=== PATIENT | female | born 1980 | race Caucasian/White ===

== ENCOUNTER 2021-02-25 16:19 | Observation (INO) | payer BC ==
--- NOTE | 2021-02-25 16:35 | PCM.EKG ---
#1 Interpretation EKG Date: 02/25/21 Time: 16:20 Rhythm: Other (sinus tachy) Rate (Beats/Min): 92 ST-T: Normal
[2021-02-25] MEDS ORDERED: LORazepam 2 MG/ML SDV IVPUSH ONE ×2 (16:39→18:00)
[2021-02-25] MEDS ORDERED: Sodium Chloride 0.9% 1,000 ML IV ONE (16:41)
[2021-02-25] MEDS: Sodium Chloride 0.9% 10 ML Syringe FLUSH PRN (16:50)
[2021-02-25] MEDS: Sodium Chloride 0.9% 2.5 ML Syringe FLUSH PRN (16:51)
[2021-02-25 17:19] LABS: BLOOD UREA NITROGEN,BUN 16 mg/dL (7.0-18.0); CARBON DIOXIDE,CO2 9.3 mmol/L (21.0-32.0); CHLORIDE,CL 97 mmol/L (98-107); GLUCOSE RANDOM 122 mg/dL (74-106); POTASSIUM,K 4.5 mmol/L (3.5-5.1); SODIUM,NA 134 mmol/L (136-145)
[2021-02-25] MEDS ORDERED: chlordiazePOXIDE 10 MG Cap PO ONE (18:11)
--- NOTE | 2021-02-25 18:23 | EDM.PDOC ---
ED HPI GENERAL MEDICAL PROBLEM - General Chief Complaint: Abdominal Pain Stated Complaint: EMS Time Seen by Provider: 02/25/21 16:20 Source of Information: Reports: Patient History Limitations: Reports: No Limitations - History of Present Illness INITIAL COMMENTS - FREE TEXT/NARRATIVE: HISTORY AND PHYSICAL: History of present illness: The patient is a 41-year-old female presents to the emergency room via EMS after vomiting all morning. The patient is an alcoholic and stated that she had been drinking for the last 2 weeks and that her last drink was yesterday evening. Her drink of choice is vodka. She states that currently her nausea is under control after receiving Zofran from EMS. The patient states that she went to rehab 3 years ago and stopped drinking. Then last February she started drinking again after the of her . The patient states that she will drink for weeks and then quit for some days and then return to drinking. She states she is often tremulous for several days after drinking but has never sought care for it. Patient states sometimes she will feel hung over but never has vomiting such as she had. The patient reports she does have support at home of her mom and live in [facility]. The patient states she needs help with the alcohol withdrawal. Patient denies any fever, chills, headache, change in vision, syncope or near syncope. Denies any chest pain, back pain, shortness of breath or cough. Denies any diarrhea, constipation or dysuria. Has not noted any blood in urine or stool. Patient last menstrual cycle ended two days ago. The patient's boyfriend had a vasectomy and she states there is no way she could be . The patient is hemodynamically stable with a mildly elevated blood pressure of 169/77 and heart rate of 107. She is afebrile at 97.9. Review of systems: As per history of present illness and below otherwise all systems reviewed and negative. Past medical history: As per history of present illness and as reviewed below otherwise noncontributory. Surgical history: As per history of present illness and as reviewed below otherwise noncontributory. Social history: See social history for further information Family history: As per history of present illness and as reviewed below otherwise noncontributory. Physical exam: General: Well developed and well nourished. Alert and orientated x 3. Nontoxic in appearance and in mild distress distress. Vital signs are stable and have been reviewed by me. Nursing notes were reviewed. HEENT: Atraumatic, normocephalic, pupils equal and reactive bilaterally, negative for conjunctival pallor or scleral icterus, mucous membranes moist, TMs normal bilaterally, throat clear, neck supple, nontender, trachea midline. No drooling or trismus noted. No meningeal signs. No hot potato voice noted. Lungs: Clear to auscultation bilaterally. No wheezes, rales, or rhonchi. Chest nontender. Normal work of breathing, no accessory muscles used. Heart: S1S2, sinus tach without overt murmur, gallops, or rubs. No JVD. No peripheral edema Abdomen: Soft, nondistended, mildly tender. Normoactive bowel sounds. Negative for masses or costovertebral tenderness. Skin: Intact, warm, dry. No lesions or rashes noted. Hematologic: No petechiae or purpra. Mucosa appropriate color and normal nail bed color and refill. Extremities: Atraumatic, moves all extremities per self but tremulous over entire body. Negative for cords or calf pain. Neuro: Awake, alert, oriented. Cranial nerves II through XII unremarkable. Cerebellum unremarkable. Psychiatric: Mood and affect are appropriate. Normal thought process. Answering questions appropriately. Notes: *This patient was seen and evaluated during the 2019 SARS-CoV-2 novel coronavirus pandemic period. Community viral transmission is ongoing at time of this encounter and the emergency department is operating under pandemic response procedures. After discussion and examination the patient is agreeable to labs, IV fluids, Ativan with possible admission. The patient has an elevated WBC at 16.43. She denies urinary symptoms and denies fever. The patient is still tremulous so I will treat her with Ativan 1 mg IV again. Post Ativan ministration the patient appears to be more relaxed. I have spoken with Dr. Plaza regarding possible admission for the patient and she has agreed to observation with telemetry. Diagnostics: CBC, CMP, lipase, COVID-19, CXR 2V, Urine drugs, ETHOL, Therapeutics: IV fluids, Ativan x2 Impression: Alcohol withdrawal Definitive disposition and diagnosis as appropriate pending reevaluation and review of above. 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 Per pt it passed in 5-6hrs with no complications and no hx of such prior nor since. 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 - Infectious Disease History Infectious Disease History: Reports: Chicken Pox - Past Surgical History Other HEENT Surgeries/Procedures: [place] Teeth Removed ED ROS GENERAL - Review of Systems Review Of Systems: Comprehensive ROS is negative, except as noted in HPI. ED EXAM, GENERAL - Physical Exam Exam: See Below (See dictation) Course - Vital Signs Last Recorded V/S: Last Vital Signs Temp 98.3 F 02/25/21 20:26 Pulse 84 02/25/21 20:26 Resp 17 02/25/21 20:26 BP 152/93 H 02/25/21 20:26 Pulse Ox 98 02/25/21 20:26 - Orders/Labs/Meds Orders: Active Orders 24 hr Category Date Time Status EKG Documentation Completion [RC] STAT Care 02/25/21 16:38 Active Sodium Chloride 0.9% [Saline Flush] Med 02/25/21 16:37 Active 10 ml FLUSH ASDIRECTED PRN Sodium Chloride 0.9% [Saline Flush] Med 02/25/21 16:37 Active 2.5 ml FLUSH ASDIRECTED PRN Saline Lock Insert [OM.PC] Stat Oth 02/25/21 16:38 Ordered Medication Orders Acetaminophen (Acetaminophen 325 Mg Tab) 650 mg PO Q4H PRN PRN Reason: Pain (Mild 1-3)/fever Albuterol/Ipratropium (Albuterol/Ipratropium 3.0-0.5 Mg/3 Ml Neb Soln) 3 ml NEB Q4HRRT PRN PRN Reason: Shortness Of Breath/wheezing Enoxaparin Sodium (Enoxaparin 40 Mg/0.4 Ml Syringe) 40 mg SUBCUT Q24H SISI Last Admin: 02/25/21 21:16 Dose: 40 mg Documented by: ALIN Folic Acid (Folic Acid 1 Mg Tab) 1 mg PO DAILY SISI Lactated Ringer's (Ringers, Lactated) 1,000 mls @ 125 mls/hr IV ASDIRECTED [facility] Last Admin: 02/25/21 21:59 Dose: 125 mls/hr Documented by: ALIN Ceftriaxone Sodium/Dextrose (Rocephin In Dextrose,Iso-Osm 1 Gm/50 Ml) 50 mls @ 200 mls/hr IV Q24H [facility] Last Admin: 02/25/21 21:18 Dose: 200 mls/hr Documented by: ALIN Lorazepam (Lorazepam 2 Mg/Ml Sdv) 0 mg IVPUSH Q4H PRN; Protocol PRN Reason: Withdrawal Symptoms Last Admin: 02/25/21 21:33 Dose: 1 mg Documented by: ALIN Ondansetron HCl (Ondansetron 4 Mg/2 Ml Sdv) 4 mg IVPUSH Q4H PRN PRN Reason: Nausea/Vomiting Sodium Chloride (Sodium Chloride 0.9% 10 Ml Syringe) 10 ml FLUSH ASDIRECTED PRN PRN Reason: Keep Vein Open Last Admin: 02/25/21 16:50 Dose: 10 ml Documented by: [id number] Sodium Chloride (Sodium Chloride 0.9% 2.5 Ml Syringe) 2.5 ml FLUSH ASDIRECTED PRN PRN Reason: Keep Vein Open Last Admin: 02/25/21 16:51 Dose: 2.5 ml Documented by: [id number] Thiamine HCl (Thiamine 100 Mg Tab) 100 mg PO BEDTIME [facility] Last Admin: 02/25/21 21:15 Dose: 100 mg Documented by: ALIN Labs: Laboratory Tests 02/25/21 02/25/21 02/25/21 Range/Units 16:40 16:40 16:40 WBC 16.43 H (4.0-11.0) K/uL RBC 3.84 L (4.30-5.90) M/uL Hgb 12.7 (12.0-16.0) g/dL Hct 37.0 (36.0-46.0) % MCV 96.4 (80.0-98.0) fL MCH 33.1 H (27.0-32.0) pg MCHC 34.3 (31.0-37.0) g/dL RDW Std Deviation 46.5 (28.0-62.0) fl RDW Coeff of Magdiel 13 (11.0-15.0) % Plt Count 248 (150-400) K/uL MPV 9.10 (7.40-12.00) fL Neut % (Auto) 93.5 H (48.0-80.0) % Lymph % (Auto) 4.5 L (16.0-40.0) % [place] % (Auto) 1.9 (0.0-15.0) % Eos % (Auto) 0.0 (0.0-7.0) % Baso % (Auto) 0.1 (0.0-1.5) % Neut # (Auto) 15.4 H (1.4-5.7) K/uL Lymph # (Auto) 0.7 (0.6-2.4) K/uL [place] # (Auto) 0.3 (0.0-0.8) K/uL Eos # (Auto) 0.0 (0.0-0.7) K/uL Baso # (Auto) 0.0 (0.0-0.1) K/uL Nucleated RBC % 0.0 /100WBC Nucleated RBCs # 0 K/uL Sodium 134 L (136-145) mmol/L Potassium 4.5 (3.5-5.1) mmol/L Chloride 97 L (98-107) mmol/L Carbon Dioxide 9.3 L (21.0-32.0) mmol/L BUN 16 (7.0-18.0) mg/dL Creatinine 0.8 (0.6-1.0) mg/dL Est Cr Clr Drug Dosing 76.55 mL/min Estimated GFR (MDRD) > 60.0 ml/min Glucose 122 H (74-106) mg/dL Calcium 8.0 L (8.5-10.1) mg/dL Magnesium (1.8-2.4) mg/dL Total Bilirubin 1.0 (0.2-1.0) mg/dL AST 73 H (15-37) IU/L ALT 74 H (14-63) IU/L Alkaline Phosphatase 107 (46-116) U/L Total Protein 8.0 (6.4-8.2) g/dL Albumin 3.9 (3.4-5.0) g/dL Globulin 4.1 H (2.6-4.0) g/dL Albumin/Globulin Ratio 1.0 (0.9-1.6) Lipase (73-393) U/L HCG, Qual NEGATIVE (NEG) Urine Color Urine Appearance Urine pH (5.0-8.0) Ur Specific [place] (1.001-1.035) Urine Protein (NEGATIVE) mg/dL Urine Glucose (UA) (NEGATIVE) mg/dL Urine Ketones (NEGATIVE) mg/dL Urine Occult Blood (NEGATIVE) Urine Nitrite (NEGATIVE) Urine Bilirubin (NEGATIVE) Urine Urobilinogen (<2.0) EU/dL Ur Leukocyte Esterase (NEGATIVE) Urine RBC (0-2/HPF) Urine WBC (0-5/HPF) Ur Epithelial Cells (NONE-FEW) Urine Bacteria (NEGATIVE) Urine HCG, Qual (NEGATIVE) Urine Opiates Screen (NEGATIVE) Ur Oxycodone Screen (NEGATIVE) Urine Methadone Screen (NEGATIVE) Ur Barbiturates Screen (NEGATIVE) Ur Phencyclidine Scrn (NEGATIVE) Ur Amphetamine Screen (NEGATIVE) U Methamphetamines Scrn (NEGATIVE) U Benzodiazepines Scrn (NEGATIVE) U Cocaine Metab Screen (NEGATIVE) U Marijuana (THC) Screen (NEGATIVE) Ethyl Alcohol < 3.0 mg/dL SARS-CoV-2 RNA (JOSELITO) (NEGATIVE) 02/25/21 02/25/21 02/25/21 Range/Units 16:40 16:40 17:10 WBC (4.0-11.0) K/uL RBC (4.30-5.90) M/uL Hgb (12.0-16.0) g/dL Hct (36.0-46.0) % MCV (80.0-98.0) fL MCH (27.0-32.0) pg MCHC (31.0-37.0) g/dL RDW Std Deviation (28.0-62.0) fl RDW Coeff of Magdiel (11.0-15.0) % Plt Count (150-400) K/uL MPV (7.40-12.00) fL Neut % (Auto) (48.0-80.0) % Lymph % (Auto) (16.0-40.0) % [place] % (Auto) (0.0-15.0) % Eos % (Auto) (0.0-7.0) % Baso % (Auto) (0.0-1.5) % Neut # (Auto) (1.4-5.7) K/uL Lymph # (Auto) (0.6-2.4) K/uL [place] # (Auto) (0.0-0.8) K/uL Eos # (Auto) (0.0-0.7) K/uL Baso # (Auto) (0.0-0.1) K/uL Nucleated RBC % /100WBC Nucleated RBCs # K/uL Sodium (136-145) mmol/L Potassium (3.5-5.1) mmol/L Chloride (98-107) mmol/L Carbon Dioxide (21.0-32.0) mmol/L BUN (7.0-18.0) mg/dL Creatinine (0.6-1.0) mg/dL Est Cr Clr Drug Dosing mL/min Estimated GFR (MDRD) ml/min Glucose (74-106) mg/dL Calcium (8.5-10.1) mg/dL Magnesium 1.7 L (1.8-2.4) mg/dL Total Bilirubin (0.2-1.0) mg/dL AST (15-37) IU/L ALT (14-63) IU/L Alkaline Phosphatase (46-116) U/L Total Protein (6.4-8.2) g/dL Albumin (3.4-5.0) g/dL Globulin (2.6-4.0) g/dL Albumin/Globulin Ratio (0.9-1.6) Lipase 137 (73-393) U/L HCG, Qual (NEG) Urine Color Urine Appearance Urine pH (5.0-8.0) Ur Specific [place] (1.001-1.035) Urine Protein (NEGATIVE) mg/dL Urine Glucose (UA) (NEGATIVE) mg/dL Urine Ketones (NEGATIVE) mg/dL Urine Occult Blood (NEGATIVE) Urine Nitrite (NEGATIVE) Urine Bilirubin (NEGATIVE) Urine Urobilinogen (<2.0) EU/dL Ur Leukocyte Esterase (NEGATIVE) Urine RBC (0-2/HPF) Urine WBC (0-5/HPF) Ur Epithelial Cells (NONE-FEW) Urine Bacteria (NEGATIVE) Urine HCG, Qual (NEGATIVE) Urine Opiates Screen (NEGATIVE) Ur Oxycodone Screen (NEGATIVE) Urine Methadone Screen (NEGATIVE) Ur Barbiturates Screen (NEGATIVE) Ur Phencyclidine Scrn (NEGATIVE) Ur Amphetamine Screen (NEGATIVE) U Methamphetamines Scrn (NEGATIVE) U Benzodiazepines Scrn (NEGATIVE) U Cocaine Metab Screen (NEGATIVE) U Marijuana (THC) Screen (NEGATIVE) Ethyl Alcohol mg/dL SARS-CoV-2 RNA (JOSELITO) NEGATIVE (NEGATIVE) 02/25/21 02/25/21 02/25/21 Range/Units 17:30 17:30 17:30 WBC (4.0-11.0) K/uL RBC (4.30-5.90) M/uL Hgb (12.0-16.0) g/dL Hct (36.0-46.0) % MCV (80.0-98.0) fL MCH (27.0-32.0) pg MCHC (31.0-37.0) g/dL RDW Std Deviation (28.0-62.0) fl RDW Coeff of Magdiel (11.0-15.0) % Plt Count (150-400) K/uL MPV (7.40-12.00) fL Neut % (Auto) (48.0-80.0) % Lymph % (Auto) (16.0-40.0) % [place] % (Auto) (0.0-15.0) % Eos % (Auto) (0.0-7.0) % Baso % (Auto) (0.0-1.5) % Neut # (Auto) (1.4-5.7) K/uL Lymph # (Auto) (0.6-2.4) K/uL [place] # (Auto) (0.0-0.8) K/uL Eos # (Auto) (0.0-0.7) K/uL Baso # (Auto) (0.0-0.1) K/uL Nucleated RBC % /100WBC Nucleated RBCs # K/uL Sodium (136-145) mmol/L Potassium (3.5-5.1) mmol/L Chloride (98-107) mmol/L Carbon Dioxide (21.0-32.0) mmol/L BUN (7.0-18.0) mg/dL Creatinine (0.6-1.0) mg/dL Est Cr Clr Drug Dosing mL/min Estimated GFR (MDRD) ml/min Glucose (74-106) mg/dL Calcium (8.5-10.1) mg/dL Magnesium (1.8-2.4) mg/dL Total Bilirubin (0.2-1.0) mg/dL AST (15-37) IU/L ALT (14-63) IU/L Alkaline Phosphatase (46-116) U/L Total Protein (6.4-8.2) g/dL Albumin (3.4-5.0) g/dL Globulin (2.6-4.0) g/dL Albumin/Globulin Ratio (0.9-1.6) Lipase (73-393) U/L HCG, Qual (NEG) Urine Color YELLOW Urine Appearance HAZY Urine pH 6.0 (5.0-8.0) Ur Specific [place] >= 1.030 (1.001-1.035) Urine Protein 30 H (NEGATIVE) mg/dL Urine Glucose (UA) NEGATIVE (NEGATIVE) mg/dL Urine Ketones >=80 (NEGATIVE) mg/dL Urine Occult Blood LARGE H (NEGATIVE) Urine Nitrite NEGATIVE (NEGATIVE) Urine Bilirubin NEGATIVE (NEGATIVE) Urine Urobilinogen 0.2 (<2.0) EU/dL Ur Leukocyte Esterase TRACE H (NEGATIVE) Urine RBC 0-3 (0-2/HPF) Urine WBC 0-1 (0-5/HPF) Ur Epithelial Cells FEW (NONE-FEW) Urine Bacteria FEW (NEGATIVE) Urine HCG, Qual NEGATIVE (NEGATIVE) Urine Opiates Screen NEGATIVE (NEGATIVE) Ur Oxycodone Screen NEGATIVE (NEGATIVE) Urine Methadone Screen NEGATIVE (NEGATIVE) Ur Barbiturates Screen NEGATIVE (NEGATIVE) Ur Phencyclidine Scrn NEGATIVE (NEGATIVE) Ur Amphetamine Screen NEGATIVE (NEGATIVE) U Methamphetamines Scrn NEGATIVE (NEGATIVE) U Benzodiazepines Scrn NEGATIVE (NEGATIVE) U Cocaine Metab Screen NEGATIVE (NEGATIVE) U Marijuana (THC) Screen NEGATIVE (NEGATIVE) Ethyl Alcohol mg/dL SARS-CoV-2 RNA (JOSELITO) (NEGATIVE) Meds: Medications Generic Name Dose Route Start Last Admin Trade Name Freq PRN Reason Stop Dose Admin Acetaminophen 650 mg 02/25/21 19:56 Acetaminophen 325 Mg Tab PO Q4H PRN Pain (Mild 1-3)/fever Albuterol/Ipratropium 3 ml 02/25/21 19:56 Albuterol/Ipratropium 3.0-0.5 Mg/3 Ml Neb Soln NEB Q4HRRT PRN Shortness Of Breath/wheezing Enoxaparin Sodium 40 mg 02/25/21 20:00 02/25/21 21:16 Enoxaparin 40 Mg/0.4 Ml Syringe SUBCUT 40 mg Q24H SISI Administration Folic Acid 1 mg 02/26/21 09:00 Folic Acid 1 Mg Tab PO DAILY SISI Lactated Ringer's 1,000 mls @ 125 mls/hr 02/25/21 20:45 02/25/21 21:59 Ringers, Lactated IV 125 mls/hr ASDIRECTED SISI Administration Ceftriaxone Sodium/Dextrose 50 mls @ 200 mls/hr 02/25/21 21:00 02/25/21 21:18 Rocephin In Dextrose,Iso-Osm 1 Gm/50 Ml IV 200 mls/hr Q24H SISI Administration Lorazepam 0 mg 02/25/21 20:03 02/25/21 21:33 Lorazepam 2 Mg/Ml Sdv IVPUSH 1 mg Q4H PRN Administration Withdrawal Symptoms Protocol Ondansetron HCl 4 mg 02/25/21 19:56 Ondansetron 4 Mg/2 Ml Sdv IVPUSH Q4H PRN Nausea/Vomiting Sodium Chloride 10 ml 02/25/21 16:37 02/25/21 16:50 Sodium Chloride 0.9% 10 Ml Syringe FLUSH 10 ml ASDIRECTED PRN Administration Keep Vein Open Sodium Chloride 2.5 ml 02/25/21 16:37 02/25/21 16:51 Sodium Chloride 0.9% 2.5 Ml Syringe FLUSH 2.5 ml ASDIRECTED PRN Administration Keep Vein Open Thiamine HCl 100 mg 02/25/21 21:00 02/25/21 21:15 Thiamine 100 Mg Tab PO 100 mg BEDTIME SISI Administration Discontinued Medications Generic Name Dose Route Start Last Admin Trade Name Freq PRN Reason Stop Dose Admin Chlordiazepoxide HCl 10 mg 02/25/21 18:11 02/25/21 19:18 Chlordiazepoxide 10 Mg Cap PO 02/25/21 18:12 10 mg ONETIME ONE Administration Sodium Chloride 1,000 mls @ 999 mls/hr 02/25/21 16:41 02/25/21 16:51 Normal Saline IV 02/25/21 17:41 999 mls/hr .BOLUS ONE Administration Lorazepam 1 mg 02/25/21 16:39 02/25/21 16:51 Lorazepam 2 Mg/Ml Sdv IVPUSH 02/25/21 16:40 1 mg ONETIME ONE Administration Lorazepam 1 mg 02/25/21 18:00 02/25/21 18:13 Lorazepam 2 Mg/Ml Sdv IVPUSH 02/25/21 18:01 1 mg ONETIME ONE Administration Magnesium Oxide 800 mg 02/25/21 20:37 02/25/21 21:15 Magnesium Oxide 400 Mg Tab PO 02/25/21 20:38 800 mg ONETIME ONE Administration Departure - Departure Time of Disposition: 18:13 Disposition: Admitted As Inpatient 66 Condition: Good Clinical Impression: Alcohol abuse, Withdrawal complaint - Discharge Information *PRESCRIPTION DRUG MONITORING PROGRAM REVIEWED*: No *COPY OF PRESCRIPTION DRUG MONITORING REPORT IN PATIENT ANDRESSA: No Sepsis Event Note (ED) - Evaluation Sepsis Screening Result: No Definite Risk - Focused Exam Vital Signs: Vital Signs Temp Pulse Resp BP Pulse Ox 02/25/21 17:25 96 19 148/92 H 97 02/25/21 16:22 97.9 F 92 18 169/77 H 98 - My Orders Last 24 Hours: My Active Orders 02/25/21 16:37 Sodium Chloride 0.9% [Saline Flush] 10 ml FLUSH ASDIRECTED PRN Sodium Chloride 0.9% [Saline Flush] 2.5 ml FLUSH ASDIRECTED PRN 02/25/21 16:38 EKG Documentation Completion [RC] STAT Saline Lock Insert [OM.PC] Stat - Assessment/Plan Last 24 Hours: My Active Orders 02/25/21 16:37 Sodium Chloride 0.9% [Saline Flush] 10 ml FLUSH ASDIRECTED PRN Sodium Chloride 0.9% [Saline Flush] 2.5 ml FLUSH ASDIRECTED PRN 02/25/21 16:38 EKG Documentation Completion [RC] STAT Saline Lock Insert [OM.PC] Stat
--- NOTE | 2021-02-25 19:10 | CR ---
Indication: Increased white blood cell count possible aspiration Comparison: None available. Technique: PA and Lateral views chest Findings: There is no focal consolidation, effusion, or pneumothorax. The cardiomediastinal silhouette is within normal limits. The bony thorax is grossly intact. Impression: No acute cardiopulmonary abnormality. No evidence of dense consolidation. Dictated by Frandy Markham MD @ 02/25/2021 7:09:[address] Frandy Markham @ Feb 25 2021 7:09PM
[2021-02-25] MEDS ORDERED: Ondansetron 4 MG/2 ML SDV IVPUSH PRN (19:56)
[2021-02-25] MEDS ORDERED: Albuterol/Ipratropium 3.0-0.5 MG/3 ML Neb Soln NEB PRN (19:56)
[2021-02-25] MEDS ORDERED: Magnesium Oxide 400 MG Tab PO ONE (20:37)
--- NOTE | 2021-02-25 20:38 | PCM.HP.2 ---
H&P History of Present Illness - General Date of Service: 02/25/21 Admit Problem/Dx: Admission Diagnosis/Problem Admission Diagnosis/Problem Withdrawal complaint Source of Information: Patient History Limitations: Reports: No Limitations - History of Present Illness Initial Comments - Free Text/Narative: Patient is a 41-year-old female with past medical history of alcohol abuse, anxiety, depression who comes into the ER by EMS with complaints of feeling unwell and having intractable nausea all morning. Patient states that she has been drinking for last 2 weeks and her last drink was yesterday evening when she had some vodka. She states that she has been struggling with alcohol abuse for a while. She had been sober for few years after she went to rehab 3 years ago but then last year she went through a lot of stress due to losing close family members and hence started drinking again. Patient states that she had stopped drinking for last 3 days but was feeling very miserable so yesterday she had a couple of drinks. Today she started having intractable nausea and vomiting and started feeling very sick so she came to the hospital. Patient feels like she is going through withdrawal symptoms and needs help to go through it.. Patient denies any fever, chills, headache, change in vision, syncope or near syncope. Denies any chest pain, back pain, shortness of breath or cough. Denies any diarrhea, constipation or dysuria. Has not noted any blood in urine or stool. Patient last menstrual cycle ended two days ago. The patient's boyfriend had a vasectomy and she states there is no way she could be . The patient is hemodynamically stable with a mildly elevated blood pressure of 169/77 and heart rate of 107. She is afebrile at 97.9, patient CIWA score was 21 in the ER so she received 2 doses of Ativan and upon my request she also receiv ed 10 mg of Librium. Patient was admitted for further management. - Related Data Allergies/Adverse Reactions: Allergies Allergy/AdvReac Type Severity Reaction Status Date / Time No Known Allergies Allergy Verified 02/25/21 20:29 Home Medications: Home Meds Escitalopram [Lexapro] 20 mg PO BEDTIME 02/25/21 [History] Past Medical History - Past Health History Medical/Surgical History: Denies Medical/Surgical History Other Genitourinary History: Passed a kidney stone during this current . Per pt it passed in 5-6hrs with no complications and no hx of such prior nor since. ILLUSIONIST History: Reports: Other OB/BYN History: Currently 39-2 weeks gestation. - Infectious Disease History Infectious Disease History: Reports: Chicken Pox - Past Surgical History Other HEENT Surgeries/Procedures: [place] Teeth Removed H&P Review of Systems - Review of Systems: Review Of Systems: See Below General: Reports: Malaise, Weakness, Fatigue. Denies: Fever, Chills Pulmonary: Denies: Shortness of Breath, Wheezing Cardiovascular: Denies: Chest Pain, Palpitations Gastrointestinal: Reports: Anorexia, Decreased Appetite, Nausea, Vomiting. Denies: Abdominal Pain, Black Stool, Bloody Stool, Constipation, Diarrhea, Hematemesis, Hematochezia Genitourinary: Denies: Dysuria, Frequency Musculoskeletal: Denies: Neck Pain, Shoulder Pain Skin: Denies: Cyanosis, Jaundice, Mottled Psychiatric: Reports: Anxiety. Denies: Confusion, Depression, Mood Lability, Suicidal Ideation, Homicidal Ideation Exam - Exam Exam: See Below - Vital Signs Vital Signs: Last Vital Signs Temp 36.8 C 02/25/21 20:26 Pulse 84 02/25/21 20:26 Resp 17 02/25/21 20:26 BP 152/93 H 02/25/21 20:26 Pulse Ox 98 02/25/21 20:26 Weight: 56.699 kg - Exam Quality Assessment: Supplemental Oxygen General: Alert, Cooperative, Moderate Distress Neck: Supple, Trachea Midline Lungs: Clear to Auscultation, Normal Respiratory Effort Cardiovascular: Regular Rate, Regular Rhythm GI/Abdominal Exam: Normal Bowel Sounds, Soft, Non-Tender Skin: Warm, Dry Neurological: Cranial Nerves Intact, Strength Equal Bilateral, Normal Tone Neuro Extensive - Mental Status: Alert, Oriented x3 Neuro Extensive - Motor, Sensory, Reflexes: CN II-XII Intact, Tremor. No: Tongue Deviation (R), Facial Palsy (R), Motor/Sensory Deficits Psychiatric: Alert, Anxious, Withdrawal Symptoms - Patient Data Lab Results Last 24 hrs: Laboratory Results - last 24 hr 02/25/21 02/25/21 02/25/21 Range/Units 16:40 16:40 16:40 WBC 16.43 H (4.0-11.0) K/uL RBC 3.84 L (4.30-5.90) M/uL Hgb 12.7 (12.0-16.0) g/dL Hct 37.0 (36.0-46.0) % MCV 96.4 (80.0-98.0) fL MCH 33.1 H (27.0-32.0) pg MCHC 34.3 (31.0-37.0) g/dL RDW Std Deviation 46.5 (28.0-62.0) fl RDW Coeff of Magdiel 13 (11.0-15.0) % Plt Count 248 (150-400) K/uL MPV 9.10 (7.40-12.00) fL Neut % (Auto) 93.5 H (48.0-80.0) % Lymph % (Auto) 4.5 L (16.0-40.0) % Linn % (Auto) 1.9 (0.0-15.0) % Eos % (Auto) 0.0 (0.0-7.0) % Baso % (Auto) 0.1 (0.0-1.5) % Neut # (Auto) 15.4 H (1.4-5.7) K/uL Lymph # (Auto) 0.7 (0.6-2.4) K/uL Linn # (Auto) 0.3 (0.0-0.8) K/uL Eos # (Auto) 0.0 (0.0-0.7) K/uL Baso # (Auto) 0.0 (0.0-0.1) K/uL Nucleated RBC % 0.0 /100WBC Nucleated RBCs # 0 K/uL Sodium 134 L (136-145) mmol/L Potassium 4.5 (3.5-5.1) mmol/L Chloride 97 L (98-107) mmol/L Carbon Dioxide 9.3 L (21.0-32.0) mmol/L BUN 16 (7.0-18.0) mg/dL Creatinine 0.8 (0.6-1.0) mg/dL Est Cr Clr Drug Dosing 76.55 mL/min Estimated GFR (MDRD) > 60.0 ml/min Glucose 122 H (74-106) mg/dL Calcium 8.0 L (8.5-10.1) mg/dL Magnesium (1.8-2.4) mg/dL Total Bilirubin 1.0 (0.2-1.0) mg/dL AST 73 H (15-37) IU/L ALT 74 H (14-63) IU/L Alkaline Phosphatase 107 (46-116) U/L Total Protein 8.0 (6.4-8.2) g/dL Albumin 3.9 (3.4-5.0) g/dL Globulin 4.1 H (2.6-4.0) g/dL Albumin/Globulin Ratio 1.0 (0.9-1.6) Lipase (73-393) U/L HCG, Qual NEGATIVE (NEG) Urine Color Urine Appearance Urine pH (5.0-8.0) Ur Specific Palmer (1.001-1.035) Urine Protein (NEGATIVE) mg/dL Urine Glucose (UA) (NEGATIVE) mg/dL Urine Ketones (NEGATIVE) mg/dL Urine Occult Blood (NEGATIVE) Urine Nitrite (NEGATIVE) Urine Bilirubin (NEGATIVE) Urine Urobilinogen (<2.0) EU/dL Ur Leukocyte Esterase (NEGATIVE) Urine RBC (0-2/HPF) Urine WBC (0-5/HPF) Ur Epithelial Cells (NONE-FEW) Urine Bacteria (NEGATIVE) Urine HCG, Qual (NEGATIVE) Urine Opiates Screen (NEGATIVE) Ur Oxycodone Screen (NEGATIVE) Urine Methadone Screen (NEGATIVE) Ur Barbiturates Screen (NEGATIVE) Ur Phencyclidine Scrn (NEGATIVE) Ur Amphetamine Screen (NEGATIVE) U Methamphetamines Scrn (NEGATIVE) U Benzodiazepines Scrn (NEGATIVE) U Cocaine Metab Screen (NEGATIVE) U Marijuana (THC) Screen (NEGATIVE) Ethyl Alcohol < 3.0 mg/dL SARS-CoV-2 RNA (JOSELITO) (NEGATIVE) 02/25/21 02/25/21 02/25/21 Range/Units 16:40 16:40 17:10 WBC (4.0-11.0) K/uL RBC (4.30-5.90) M/uL Hgb (12.0-16.0) g/dL Hct (36.0-46.0) % MCV (80.0-98.0) fL MCH (27.0-32.0) pg MCHC (31.0-37.0) g/dL RDW Std Deviation (28.0-62.0) fl RDW Coeff of Magdiel (11.0-15.0) % Plt Count (150-400) K/uL MPV (7.40-12.00) fL Neut % (Auto) (48.0-80.0) % Lymph % (Auto) (16.0-40.0) % Linn % (Auto) (0.0-15.0) % Eos % (Auto) (0.0-7.0) % Baso % (Auto) (0.0-1.5) % Neut # (Auto) (1.4-5.7) K/uL Lymph # (Auto) (0.6-2.4) K/uL Linn # (Auto) (0.0-0.8) K/uL Eos # (Auto) (0.0-0.7) K/uL Baso # (Auto) (0.0-0.1) K/uL Nucleated RBC % /100WBC Nucleated RBCs # K/uL Sodium (136-145) mmol/L Potassium (3.5-5.1) mmol/L Chloride (98-107) mmol/L Carbon Dioxide (21.0-32.0) mmol/L BUN (7.0-18.0) mg/dL Creatinine (0.6-1.0) mg/dL Est Cr Clr Drug Dosing mL/min Estimated GFR (MDRD) ml/min Glucose (74-106) mg/dL Calcium (8.5-10.1) mg/dL Magnesium 1.7 L (1.8-2.4) mg/dL Total Bilirubin (0.2-1.0) mg/dL AST (15-37) IU/L ALT (14-63) IU/L Alkaline Phosphatase (46-116) U/L Total Protein (6.4-8.2) g/dL Albumin (3.4-5.0) g/dL Globulin (2.6-4.0) g/dL Albumin/Globulin Ratio (0.9-1.6) Lipase 137 (73-393) U/L HCG, Qual (NEG) Urine Color Urine Appearance Urine pH (5.0-8.0) Ur Specific Palmer (1.001-1.035) Urine Protein (NEGATIVE) mg/dL Urine Glucose (UA) (NEGATIVE) mg/dL Urine Ketones (NEGATIVE) mg/dL Urine Occult Blood (NEGATIVE) Urine Nitrite (NEGATIVE) Urine Bilirubin (NEGATIVE) Urine Urobilinogen (<2.0) EU/dL Ur Leukocyte Esterase (NEGATIVE) Urine RBC (0-2/HPF) Urine WBC (0-5/HPF) Ur Epithelial Cells (NONE-FEW) Urine Bacteria (NEGATIVE) Urine HCG, Qual (NEGATIVE) Urine Opiates Screen (NEGATIVE) Ur Oxycodone Screen (NEGATIVE) Urine Methadone Screen (NEGATIVE) Ur Barbiturates Screen (NEGATIVE) Ur Phencyclidine Scrn (NEGATIVE) Ur Amphetamine Screen (NEGATIVE) U Methamphetamines Scrn (NEGATIVE) U Benzodiazepines Scrn (NEGATIVE) U Cocaine Metab Screen (NEGATIVE) U Marijuana (THC) Screen (NEGATIVE) Ethyl Alcohol mg/dL SARS-CoV-2 RNA (JOSELITO) NEGATIVE (NEGATIVE) 02/25/21 02/25/21 02/25/21 Range/Units 17:30 17:30 17:30 WBC (4.0-11.0) K/uL RBC (4.30-5.90) M/uL Hgb (12.0-16.0) g/dL Hct (36.0-46.0) % MCV (80.0-98.0) fL MCH (27.0-32.0) pg MCHC (31.0-37.0) g/dL RDW Std Deviation (28.0-62.0) fl RDW Coeff of Magdiel (11.0-15.0) % Plt Count (150-400) K/uL MPV (7.40-12.00) fL Neut % (Auto) (48.0-80.0) % Lymph % (Auto) (16.0-40.0) % Linn % (Auto) (0.0-15.0) % Eos % (Auto) (0.0-7.0) % Baso % (Auto) (0.0-1.5) % Neut # (Auto) (1.4-5.7) K/uL Lymph # (Auto) (0.6-2.4) K/uL Linn # (Auto) (0.0-0.8) K/uL Eos # (Auto) (0.0-0.7) K/uL Baso # (Auto) (0.0-0.1) K/uL Nucleated RBC % /100WBC Nucleated RBCs # K/uL Sodium (136-145) mmol/L Potassium (3.5-5.1) mmol/L Chloride (98-107) mmol/L Carbon Dioxide (21.0-32.0) mmol/L BUN (7.0-18.0) mg/dL Creatinine (0.6-1.0) mg/dL Est Cr Clr Drug Dosing mL/min Estimated GFR (MDRD) ml/min Glucose (74-106) mg/dL Calcium (8.5-10.1) mg/dL Magnesium (1.8-2.4) mg/dL Total Bilirubin (0.2-1.0) mg/dL AST (15-37) IU/L ALT (14-63) IU/L Alkaline Phosphatase (46-116) U/L Total Protein (6.4-8.2) g/dL Albumin (3.4-5.0) g/dL Globulin (2.6-4.0) g/dL Albumin/Globulin Ratio (0.9-1.6) Lipase (73-393) U/L HCG, Qual (NEG) Urine Color YELLOW Urine Appearance HAZY Urine pH 6.0 (5.0-8.0) Ur Specific Palmer >= 1.030 (1.001-1.035) Urine Protein 30 H (NEGATIVE) mg/dL Urine Glucose (UA) NEGATIVE (NEGATIVE) mg/dL Urine Ketones >=80 (NEGATIVE) mg/dL Urine Occult Blood LARGE H (NEGATIVE) Urine Nitrite NEGATIVE (NEGATIVE) Urine Bilirubin NEGATIVE (NEGATIVE) Urine Urobilinogen 0.2 (<2.0) EU/dL Ur Leukocyte Esterase TRACE H (NEGATIVE) Urine RBC 0-3 (0-2/HPF) Urine WBC 0-1 (0-5/HPF) Ur Epithelial Cells FEW (NONE-FEW) Urine Bacteria FEW (NEGATIVE) Urine HCG, Qual NEGATIVE (NEGATIVE) Urine Opiates Screen NEGATIVE (NEGATIVE) Ur Oxycodone Screen NEGATIVE (NEGATIVE) Urine Methadone Screen NEGATIVE (NEGATIVE) Ur Barbiturates Screen NEGATIVE (NEGATIVE) Ur Phencyclidine Scrn NEGATIVE (NEGATIVE) Ur Amphetamine Screen NEGATIVE (NEGATIVE) U Methamphetamines Scrn NEGATIVE (NEGATIVE) U Benzodiazepines Scrn NEGATIVE (NEGATIVE) U Cocaine Metab Screen NEGATIVE (NEGATIVE) U Marijuana (THC) Screen NEGATIVE (NEGATIVE) Ethyl Alcohol mg/dL SARS-CoV-2 RNA (JOSELITO) (NEGATIVE) Result Diagrams: 02/25/21 16:40 02/25/21 16:40 Sepsis Event Note - Evaluation Sepsis Screening Result: No Definite Risk - Focused Exam Vital Signs: Vital Signs Temp Pulse Resp BP Pulse Ox 02/25/21 20:26 36.8 C 84 17 152/93 H 98 02/25/21 19:53 84 18 135/84 98 02/25/21 17:25 96 19 148/92 H 97 02/25/21 16:22 36.6 C 92 18 169/77 H 98 - Problem List (1) Anxiety SNOMED Code(s): 01293021 ICD Code: F41.9 - ANXIETY DISORDER, UNSPECIFIED Status: Acute Current Visit: Yes (2) Alcohol abuse SNOMED Code(s): 90178541 ICD Code: F10.10 - ALCOHOL ABUSE, UNCOMPLICATED Status: Acute Current Visit: Yes (3) Withdrawal complaint SNOMED Code(s): 419168045 ICD Code: R68.89 - OTHER GENERAL SYMPTOMS AND SIGNS Status: Acute Current Visit: Yes Problem List Initiated/Reviewed/Updated: Yes Orders Last 24hrs: Active Orders 24 hr Category Date Time Status Admission Status [Patient Status] [ADT] Stat ADT 02/25/21 18:13 Active Ambulate [RC] ASDIRECTED Care 02/25/21 19:56 Active Antiembolic Devices [RC] PER UNIT ROUTINE Care 02/25/21 19:59 Active CIWAA Assessment [RC] Q4H Care 02/25/21 20:03 Active EKG Documentation Completion [RC] STAT Care 02/25/21 16:38 Active Oxygen Therapy [RC] PRN Care 02/25/21 19:57 Active Pulse Oximetry [RC] PRN Care 02/25/21 19:58 Active RT Aerosol Therapy [RC] ASDIRECTED Care 02/25/21 20:00 Active VTE/DVT Education [RC] PER UNIT ROUTINE Care 02/25/21 19:57 Active Vital Signs [RC] Q4H Care 02/25/21 19:57 Active Clear Liquid Diet [DIET] Diet 02/25/21 Dinner Active CULTURE URINE [RM] Routine Lab 02/25/21 20:35 Ordered Acetaminophen [TylenoL] Med 02/25/21 19:56 Active 650 mg PO Q4H PRN Albuterol/Ipratropium [DuoNeb 3.0-0.5 MG/3 ML] Med 02/25/21 19:56 Active 3 ml NEB Q4HRRT PRN Enoxaparin [Lovenox] Med 02/25/21 20:00 Active 40 mg SUBCUT Q24H Folic Acid Med 02/26/21 09:00 Ordered 1 mg PO DAILY LORazepam [Ativan] Med 02/25/21 20:03 Active See Protocol IVPUSH Q4H PRN Lactated Ringers [Ringers, Lactated] 1,000 ml Med 02/25/21 20:45 Ordered IV ASDIRECTED Magnesium Oxide Med 02/25/21 20:37 Once 800 mg PO ONETIME ONE Ondansetron [Zofran] Med 02/25/21 19:56 Active 4 mg IVPUSH Q4H PRN Sodium Chloride 0.9% [Saline Flush] Med 02/25/21 16:37 Active 10 ml FLUSH ASDIRECTED PRN Sodium Chloride 0.9% [Saline Flush] Med 02/25/21 16:37 Active 2.5 ml FLUSH ASDIRECTED PRN Thiamine [Vitamin B-1] Med 02/25/21 21:00 Ordered 100 mg PO BEDTIME cefTRIAXone [Rocephin] Med 02/25/21 20:45 Ordered 1 gm IVPUSH Q24H Saline Lock Insert [OM.PC] Stat Oth 02/25/21 16:38 Ordered Sequential Compression Device [OM.PC] Per Unit Routine Oth 02/25/21 19:58 Ordered Resuscitation Status Routine Resus Stat 02/25/21 19:56 Ordered Medication Orders Acetaminophen (Acetaminophen 325 Mg Tab) 650 mg PO Q4H PRN PRN Reason: Pain (Mild 1-3)/fever Albuterol/Ipratropium (Albuterol/Ipratropium 3.0-0.5 Mg/3 Ml Neb Soln) 3 ml NEB Q4HRRT PRN PRN Reason: Shortness Of Breath/wheezing Ceftriaxone Sodium (Ceftriaxone 1 Gm Vial) 1 gm IVPUSH Q24H [facility] Enoxaparin Sodium (Enoxaparin 40 Mg/0.4 Ml Syringe) 40 mg SUBCUT Q24H [facility] Folic Acid (Folic Acid 1 Mg Tab) 1 mg PO DAILY [facility] Lactated Ringer's (Ringers, Lactated) 1,000 mls @ 125 mls/hr IV ASDIRECTED [facility] Lorazepam (Lorazepam 2 Mg/Ml Sdv) 0 mg IVPUSH Q4H PRN; Protocol PRN Reason: Withdrawal Symptoms Magnesium Oxide (Magnesium Oxide 400 Mg Tab) 800 mg PO ONETIME ONE Stop: 02/25/21 20:38 Ondansetron HCl (Ondansetron 4 Mg/2 Ml Sdv) 4 mg IVPUSH Q4H PRN PRN Reason: Nausea/Vomiting Sodium Chloride (Sodium Chloride 0.9% 10 Ml Syringe) 10 ml FLUSH ASDIRECTED PRN PRN Reason: Keep Vein Open Last Admin: 02/25/21 16:50 Dose: 10 ml Documented by: [id number] Sodium Chloride (Sodium Chloride 0.9% 2.5 Ml Syringe) 2.5 ml FLUSH ASDIRECTED PRN PRN Reason: Keep Vein Open Last Admin: 02/25/21 16:51 Dose: 2.5 ml Documented by: [id number] Thiamine HCl (Thiamine 100 Mg Tab) 100 mg PO BEDTIME [facility] Assessment/Plan Comment:: Patient is a 41-year-old female admitted for alcohol withdrawal Start IV fluids for hydration Start IV Ativan as needed for alcohol withdrawal symptoms based on CIWA score Start long-acting benzodiazepine, taper down upon response Start thiamine and folic acid Follow-up on urine culture, continue Rocephin until cultures are back Fall precautions, seizure precautions SCDs for DVT prophylaxis Monitor and replete electrolytes as needed
[2021-02-25] MEDS ORDERED: cefTRIAXone 1 GM Vial IVPUSH SCH (20:45)
[2021-02-25] MEDS: Thiamine 100 MG Tab PO SCH (21:15)
[2021-02-25] MEDS: Enoxaparin 40 MG/0.4 ML Syringe SUBCUT SCH (21:16)
[2021-02-25] MEDS: LORazepam 2 MG/ML SDV IVPUSH PRN (21:33)
[2021-02-25] MEDS: Lactated Ringers 1,000 ML IV SCH (21:59)
[2021-02-26] MEDS: Lactated Ringers 1,000 ML IV SCH ×2 (06:19→21:23)
[2021-02-26 07:24] LABS: BLOOD UREA NITROGEN,BUN 12 mg/dL (7.0-18.0); CHLORIDE,CL 102 mmol/L (98-107); GLUCOSE RANDOM 78 mg/dL (74-106); POTASSIUM,K 3.8 mmol/L (3.5-5.1); SODIUM,NA 135 mmol/L (136-145)
[2021-02-26] MEDS: Folic Acid 1 MG Tab PO SCH (08:46)
[2021-02-26] MEDS: Potassium Phosphates 20 MMOLE in Sodium Chloride 0.9% 500 ML IV SCH ×2 (08:56→12:16)
--- NOTE | 2021-02-26 09:55 | PCM.PN ---
- General Info Date of Service: 02/26/21 Admission Dx/Problem (Free Text): Admission Diagnosis/Problem Admission Diagnosis/Problem Withdrawal complaint Subjective Update: Patient reports she is feeling improved from last night. Continues to have tremors denies any hallucinations reports that anxiety is well controlled. She reports she is hungry this morning and is wanting to eat. No further nausea vomiting. She is urinating. Not passing gas or have a bowel movement yet. Denies any chest pain shortness of breath. Functional Status: Reports: Pain Controlled, Tolerating Diet, Ambulating, Urinating - Review of Systems General: Reports: Malaise (Generalized). Denies: Fever HEENT: Reports: No Symptoms. Denies: Headaches, Sore Throat, Visual Changes Pulmonary: Reports: No Symptoms. Denies: Shortness of Breath Cardiovascular: Reports: No Symptoms. Denies: Chest Pain Gastrointestinal: Reports: No Symptoms. Denies: Abdominal Pain, Diarrhea, Nausea Genitourinary: Reports: No Symptoms. Denies: Dysuria, Frequency Musculoskeletal: Reports: No Symptoms Skin: Reports: No Symptoms Neurological: Reports: Tremors Psychiatric: Reports: No Symptoms - Patient Data Vitals - Most Recent: Last Vital Signs Temp 98.4 F 02/26/21 07:05 Pulse 85 02/26/21 04:00 Resp 16 02/26/21 07:05 BP 121/72 02/26/21 07:05 Pulse Ox 96 02/26/21 07:05 Weight - Most Recent: 57.062 kg I&O - Last 24 Hours: Intake & Output 02/25/21 02/26/21 02/26/21 22:59 06:59 14:59 Intake Total 1191 Output Total 550 Balance 641 Lab Results Last 24 Hours: Laboratory Results - last 24 hr 02/25/21 02/25/21 02/25/21 Range/Units 16:40 16:40 16:40 WBC 16.43 H (4.0-11.0) K/uL RBC 3.84 L (4.30-5.90) M/uL Hgb 12.7 (12.0-16.0) g/dL Hct 37.0 (36.0-46.0) % MCV 96.4 (80.0-98.0) fL MCH 33.1 H (27.0-32.0) pg MCHC 34.3 (31.0-37.0) g/dL RDW Std Deviation 46.5 (28.0-62.0) fl RDW Coeff of Magdiel 13 (11.0-15.0) % Plt Count 248 (150-400) K/uL MPV 9.10 (7.40-12.00) fL Neut % (Auto) 93.5 H (48.0-80.0) % Lymph % (Auto) 4.5 L (16.0-40.0) % Leon % (Auto) 1.9 (0.0-15.0) % Eos % (Auto) 0.0 (0.0-7.0) % Baso % (Auto) 0.1 (0.0-1.5) % Neut # (Auto) 15.4 H (1.4-5.7) K/uL Lymph # (Auto) 0.7 (0.6-2.4) K/uL Leon # (Auto) 0.3 (0.0-0.8) K/uL Eos # (Auto) 0.0 (0.0-0.7) K/uL Baso # (Auto) 0.0 (0.0-0.1) K/uL Nucleated RBC % 0.0 /100WBC Nucleated RBCs # 0 K/uL Sodium 134 L (136-145) mmol/L Potassium 4.5 (3.5-5.1) mmol/L Chloride 97 L (98-107) mmol/L Carbon Dioxide 9.3 L (21.0-32.0) mmol/L BUN 16 (7.0-18.0) mg/dL Creatinine 0.8 (0.6-1.0) mg/dL Est Cr Clr Drug Dosing 76.55 mL/min Estimated GFR (MDRD) > 60.0 ml/min Glucose 122 H (74-106) mg/dL Calcium 8.0 L (8.5-10.1) mg/dL Phosphorus (2.6-4.7) mg/dL Magnesium (1.8-2.4) mg/dL Total Bilirubin 1.0 (0.2-1.0) mg/dL AST 73 H (15-37) IU/L ALT 74 H (14-63) IU/L Alkaline Phosphatase 107 (46-116) U/L Total Protein 8.0 (6.4-8.2) g/dL Albumin 3.9 (3.4-5.0) g/dL Globulin 4.1 H (2.6-4.0) g/dL Albumin/Globulin Ratio 1.0 (0.9-1.6) Lipase (73-393) U/L HCG, Qual NEGATIVE (NEG) Urine Color Urine Appearance Urine pH (5.0-8.0) Ur Specific [place] (1.001-1.035) Urine Protein (NEGATIVE) mg/dL Urine Glucose (UA) (NEGATIVE) mg/dL Urine Ketones (NEGATIVE) mg/dL Urine Occult Blood (NEGATIVE) Urine Nitrite (NEGATIVE) Urine Bilirubin (NEGATIVE) Urine Urobilinogen (<2.0) EU/dL Ur Leukocyte Esterase (NEGATIVE) Urine RBC (0-2/HPF) Urine WBC (0-5/HPF) Ur Epithelial Cells (NONE-FEW) Urine Bacteria (NEGATIVE) Urine HCG, Qual (NEGATIVE) Urine Opiates Screen (NEGATIVE) Ur Oxycodone Screen (NEGATIVE) Urine Methadone Screen (NEGATIVE) Ur Barbiturates Screen (NEGATIVE) Ur Phencyclidine Scrn (NEGATIVE) Ur Amphetamine Screen (NEGATIVE) U Methamphetamines Scrn (NEGATIVE) U Benzodiazepines Scrn (NEGATIVE) U Cocaine Metab Screen (NEGATIVE) U Marijuana (THC) Screen (NEGATIVE) Ethyl Alcohol < 3.0 mg/dL SARS-CoV-2 RNA ([place]) (NEGATIVE) 02/25/21 02/25/21 02/25/21 Range/Units 16:40 16:40 17:10 WBC (4.0-11.0) K/uL RBC (4.30-5.90) M/uL Hgb (12.0-16.0) g/dL Hct (36.0-46.0) % MCV (80.0-98.0) fL MCH (27.0-32.0) pg MCHC (31.0-37.0) g/dL RDW Std Deviation (28.0-62.0) fl RDW Coeff of Magdiel (11.0-15.0) % Plt Count (150-400) K/uL MPV (7.40-12.00) fL Neut % (Auto) (48.0-80.0) % Lymph % (Auto) (16.0-40.0) % Leon % (Auto) (0.0-15.0) % Eos % (Auto) (0.0-7.0) % Baso % (Auto) (0.0-1.5) % Neut # (Auto) (1.4-5.7) K/uL Lymph # (Auto) (0.6-2.4) K/uL Leon # (Auto) (0.0-0.8) K/uL Eos # (Auto) (0.0-0.7) K/uL Baso # (Auto) (0.0-0.1) K/uL Nucleated RBC % /100WBC Nucleated RBCs # K/uL Sodium (136-145) mmol/L Potassium (3.5-5.1) mmol/L Chloride (98-107) mmol/L Carbon Dioxide (21.0-32.0) mmol/L BUN (7.0-18.0) mg/dL Creatinine (0.6-1.0) mg/dL Est Cr Clr Drug Dosing mL/min Estimated GFR (MDRD) ml/min Glucose (74-106) mg/dL Calcium (8.5-10.1) mg/dL Phosphorus (2.6-4.7) mg/dL Magnesium 1.7 L (1.8-2.4) mg/dL Total Bilirubin (0.2-1.0) mg/dL AST (15-37) IU/L ALT (14-63) IU/L Alkaline Phosphatase (46-116) U/L Total Protein (6.4-8.2) g/dL Albumin (3.4-5.0) g/dL Globulin (2.6-4.0) g/dL Albumin/Globulin Ratio (0.9-1.6) Lipase 137 (73-393) U/L HCG, Qual (NEG) Urine Color Urine Appearance Urine pH (5.0-8.0) Ur Specific [place] (1.001-1.035) Urine Protein (NEGATIVE) mg/dL Urine Glucose (UA) (NEGATIVE) mg/dL Urine Ketones (NEGATIVE) mg/dL Urine Occult Blood (NEGATIVE) Urine Nitrite (NEGATIVE) Urine Bilirubin (NEGATIVE) Urine Urobilinogen (<2.0) EU/dL Ur Leukocyte Esterase (NEGATIVE) Urine RBC (0-2/HPF) Urine WBC (0-5/HPF) Ur Epithelial Cells (NONE-FEW) Urine Bacteria (NEGATIVE) Urine HCG, Qual (NEGATIVE) Urine Opiates Screen (NEGATIVE) Ur Oxycodone Screen (NEGATIVE) Urine Methadone Screen (NEGATIVE) Ur Barbiturates Screen (NEGATIVE) Ur Phencyclidine Scrn (NEGATIVE) Ur Amphetamine Screen (NEGATIVE) U Methamphetamines Scrn (NEGATIVE) U Benzodiazepines Scrn (NEGATIVE) U Cocaine Metab Screen (NEGATIVE) U Marijuana (THC) Screen (NEGATIVE) Ethyl Alcohol mg/dL SARS-CoV-2 RNA ([place]) NEGATIVE (NEGATIVE) 02/25/21 02/25/21 02/25/21 Range/Units 17:30 17:30 17:30 WBC (4.0-11.0) K/uL RBC (4.30-5.90) M/uL Hgb (12.0-16.0) g/dL Hct (36.0-46.0) % MCV (80.0-98.0) fL MCH (27.0-32.0) pg MCHC (31.0-37.0) g/dL RDW Std Deviation (28.0-62.0) fl RDW Coeff of Magdiel (11.0-15.0) % Plt Count (150-400) K/uL MPV (7.40-12.00) fL Neut % (Auto) (48.0-80.0) % Lymph % (Auto) (16.0-40.0) % Leon % (Auto) (0.0-15.0) % Eos % (Auto) (0.0-7.0) % Baso % (Auto) (0.0-1.5) % Neut # (Auto) (1.4-5.7) K/uL Lymph # (Auto) (0.6-2.4) K/uL Leon # (Auto) (0.0-0.8) K/uL Eos # (Auto) (0.0-0.7) K/uL Baso # (Auto) (0.0-0.1) K/uL Nucleated RBC % /100WBC Nucleated RBCs # K/uL Sodium (136-145) mmol/L Potassium (3.5-5.1) mmol/L Chloride (98-107) mmol/L Carbon Dioxide (21.0-32.0) mmol/L BUN (7.0-18.0) mg/dL Creatinine (0.6-1.0) mg/dL Est Cr Clr Drug Dosing mL/min Estimated GFR (MDRD) ml/min Glucose (74-106) mg/dL Calcium (8.5-10.1) mg/dL Phosphorus (2.6-4.7) mg/dL Magnesium (1.8-2.4) mg/dL Total Bilirubin (0.2-1.0) mg/dL AST (15-37) IU/L ALT (14-63) IU/L Alkaline Phosphatase (46-116) U/L Total Protein (6.4-8.2) g/dL Albumin (3.4-5.0) g/dL Globulin (2.6-4.0) g/dL Albumin/Globulin Ratio (0.9-1.6) Lipase (73-393) U/L HCG, Qual (NEG) Urine Color YELLOW Urine Appearance HAZY Urine pH 6.0 (5.0-8.0) Ur Specific [place] >= 1.030 (1.001-1.035) Urine Protein 30 H (NEGATIVE) mg/dL Urine Glucose (UA) NEGATIVE (NEGATIVE) mg/dL Urine Ketones >=80 (NEGATIVE) mg/dL Urine Occult Blood LARGE H (NEGATIVE) Urine Nitrite NEGATIVE (NEGATIVE) Urine Bilirubin NEGATIVE (NEGATIVE) Urine Urobilinogen 0.2 (<2.0) EU/dL Ur Leukocyte Esterase TRACE H (NEGATIVE) Urine RBC 0-3 (0-2/HPF) Urine WBC 0-1 (0-5/HPF) Ur Epithelial Cells FEW (NONE-FEW) Urine Bacteria FEW (NEGATIVE) Urine HCG, Qual NEGATIVE (NEGATIVE) Urine Opiates Screen NEGATIVE (NEGATIVE) Ur Oxycodone Screen NEGATIVE (NEGATIVE) Urine Methadone Screen NEGATIVE (NEGATIVE) Ur Barbiturates Screen NEGATIVE (NEGATIVE) Ur Phencyclidine Scrn NEGATIVE (NEGATIVE) Ur Amphetamine Screen NEGATIVE (NEGATIVE) U Methamphetamines Scrn NEGATIVE (NEGATIVE) U Benzodiazepines Scrn NEGATIVE (NEGATIVE) U Cocaine Metab Screen NEGATIVE (NEGATIVE) U Marijuana (THC) Screen NEGATIVE (NEGATIVE) Ethyl Alcohol mg/dL SARS-CoV-2 RNA ([place]) (NEGATIVE) 02/26/21 02/26/21 Range/Units 06:33 06:33 WBC 7.93 (4.0-11.0) K/uL RBC 3.62 L (4.30-5.90) M/uL Hgb 12.1 (12.0-16.0) g/dL Hct 34.5 L (36.0-46.0) % MCV 95.3 (80.0-98.0) fL MCH 33.4 H (27.0-32.0) pg MCHC 35.1 (31.0-37.0) g/dL RDW Std Deviation 46.1 (28.0-62.0) fl RDW Coeff of Magdiel 13 (11.0-15.0) % Plt Count 201 (150-400) K/uL MPV 9.20 (7.40-12.00) fL Neut % (Auto) 68.1 (48.0-80.0) % Lymph % (Auto) 25.9 (16.0-40.0) % Leon % (Auto) 4.8 (0.0-15.0) % Eos % (Auto) 0.9 (0.0-7.0) % Baso % (Auto) 0.3 (0.0-1.5) % Neut # (Auto) 5.4 (1.4-5.7) K/uL Lymph # (Auto) 2.1 (0.6-2.4) K/uL Leon # (Auto) 0.4 (0.0-0.8) K/uL Eos # (Auto) 0.1 (0.0-0.7) K/uL Baso # (Auto) 0.0 (0.0-0.1) K/uL Nucleated RBC % 0.0 /100WBC Nucleated RBCs # 0 K/uL Sodium 135 L (136-145) mmol/L Potassium 3.8 (3.5-5.1) mmol/L Chloride 102 (98-107) mmol/L Carbon Dioxide 21.0 (21.0-32.0) mmol/L BUN 12 (7.0-18.0) mg/dL Creatinine 0.9 (0.6-1.0) mg/dL Est Cr Clr Drug Dosing 68.05 mL/min Estimated GFR (MDRD) > 60.0 ml/min Glucose 78 (74-106) mg/dL Calcium 7.4 L (8.5-10.1) mg/dL Phosphorus 1.3 L (2.6-4.7) mg/dL Magnesium 2.0 (1.8-2.4) mg/dL Total Bilirubin 0.7 (0.2-1.0) mg/dL AST 71 H (15-37) IU/L ALT 65 H (14-63) IU/L Alkaline Phosphatase 91 (46-116) U/L Total Protein 7.0 (6.4-8.2) g/dL Albumin 3.5 (3.4-5.0) g/dL Globulin 3.5 (2.6-4.0) g/dL Albumin/Globulin Ratio 1.0 (0.9-1.6) Lipase (73-393) U/L HCG, Qual (NEG) Urine Color Urine Appearance Urine pH (5.0-8.0) Ur Specific [place] (1.001-1.035) Urine Protein (NEGATIVE) mg/dL Urine Glucose (UA) (NEGATIVE) mg/dL Urine Ketones (NEGATIVE) mg/dL Urine Occult Blood (NEGATIVE) Urine Nitrite (NEGATIVE) Urine Bilirubin (NEGATIVE) Urine Urobilinogen (<2.0) EU/dL Ur Leukocyte Esterase (NEGATIVE) Urine RBC (0-2/HPF) Urine WBC (0-5/HPF) Ur Epithelial Cells (NONE-FEW) Urine Bacteria (NEGATIVE) Urine HCG, Qual (NEGATIVE) Urine Opiates Screen (NEGATIVE) Ur Oxycodone Screen (NEGATIVE) Urine Methadone Screen (NEGATIVE) Ur Barbiturates Screen (NEGATIVE) Ur Phencyclidine Scrn (NEGATIVE) Ur Amphetamine Screen (NEGATIVE) U Methamphetamines Scrn (NEGATIVE) U Benzodiazepines Scrn (NEGATIVE) U Cocaine Metab Screen (NEGATIVE) U Marijuana (THC) Screen (NEGATIVE) Ethyl Alcohol mg/dL SARS-CoV-2 RNA ([place]) (NEGATIVE) Med Orders - Current: Current Medications Acetaminophen (Acetaminophen 325 Mg Tab) 650 mg PO Q4H PRN PRN Reason: Pain (Mild 1-3)/fever Albuterol/Ipratropium (Albuterol/Ipratropium 3.0-0.5 Mg/3 Ml Neb Soln) 3 ml NEB Q4HRRT PRN PRN Reason: Shortness Of Breath/wheezing Enoxaparin Sodium (Enoxaparin 40 Mg/0.4 Ml Syringe) 40 mg SUBCUT Q24H [facility] Last Admin: 02/25/21 21:16 Dose: 40 mg Documented by: Folic Acid (Folic Acid 1 Mg Tab) 1 mg PO DAILY [facility] Last Admin: 02/26/21 08:46 Dose: 1 mg Documented by: Lactated Ringer's (Ringers, Lactated) 1,000 mls @ 125 mls/hr IV ASDIRECTED [facility] Last Admin: 02/26/21 06:19 Dose: 125 mls/hr Documented by: Potassium Phosphate 20 mmole/ (Sodium Chloride) 506.6667 mls @ 168.889 mls/hr IV Q3H [facility] Stop: 02/26/21 14:29 Last Admin: 02/26/21 08:56 Dose: 168.889 mls/hr Documented by: Ceftriaxone Sodium/Dextrose 1 (gm/ Premix) 50 mls @ 200 mls/hr IV Q24H [facility] Lorazepam (Lorazepam 2 Mg/Ml Sdv) 0 mg IVPUSH Q4H PRN; Protocol PRN Reason: Withdrawal Symptoms Last Admin: 02/25/21 21:33 Dose: 1 mg Documented by: Ondansetron HCl (Ondansetron 4 Mg/2 Ml Sdv) 4 mg IVPUSH Q4H PRN PRN Reason: Nausea/Vomiting Sodium Chloride (Sodium Chloride 0.9% 10 Ml Syringe) 10 ml FLUSH ASDIRECTED PRN PRN Reason: Keep Vein Open Last Admin: 02/25/21 16:50 Dose: 10 ml Documented by: Sodium Chloride (Sodium Chloride 0.9% 2.5 Ml Syringe) 2.5 ml FLUSH ASDIRECTED PRN PRN Reason: Keep Vein Open Last Admin: 02/25/21 16:51 Dose: 2.5 ml Documented by: Thiamine HCl (Thiamine 100 Mg Tab) 100 mg PO BEDTIME [facility] Last Admin: 02/25/21 21:15 Dose: 100 mg Documented by: Discontinued Medications Chlordiazepoxide HCl (Chlordiazepoxide 10 Mg Cap) 10 mg PO ONETIME ONE Stop: 02/25/21 18:12 Last Admin: 02/25/21 19:18 Dose: 10 mg Documented by: Sodium Chloride (Normal Saline) 1,000 mls @ 999 mls/hr IV .BOLUS ONE Stop: 02/25/21 17:41 Last Admin: 02/25/21 16:51 Dose: 999 mls/hr Documented by: Ceftriaxone Sodium/Dextrose (Rocephin In Dextrose,Iso-Osm 1 Gm/50 Ml) 50 mls @ 200 mls/hr IV Q24H [facility] Last Admin: 02/25/21 21:18 Dose: 200 mls/hr Documented by: Lorazepam (Lorazepam 2 Mg/Ml Sdv) 1 mg IVPUSH ONETIME ONE Stop: 02/25/21 16:40 Last Admin: 02/25/21 16:51 Dose: 1 mg Documented by: Lorazepam (Lorazepam 2 Mg/Ml Sdv) 1 mg IVPUSH ONETIME ONE Stop: 02/25/21 18:01 Last Admin: 02/25/21 18:13 Dose: 1 mg Documented by: Magnesium Oxide (Magnesium Oxide 400 Mg Tab) 800 mg PO ONETIME ONE Stop: 02/25/21 20:38 Last Admin: 02/25/21 21:15 Dose: 800 mg Documented by: - Exam Quality Assessment: DVT Prophylaxis. No: Urine Catheter General: Alert, Oriented Lungs: Clear to Auscultation, Normal Respiratory Effort Cardiovascular: Regular Rate, Regular Rhythm GI/Abdominal Exam: Normal Bowel Sounds, Soft, Non-Tender Extremities: Normal Inspection, Normal Range of Motion, Non-Tender, No Pedal Edema Neurological: Normal Gait Psy/Mental Status: Alert, Normal Mood, Withdrawal Symptoms. No: Anxious, Hallucinations - Patient Data Lab Results Last 24 hrs: Laboratory Results - last 24 hr 02/25/21 02/25/21 02/25/21 Range/Units 16:40 16:40 16:40 WBC 16.43 H (4.0-11.0) K/uL RBC 3.84 L (4.30-5.90) M/uL Hgb 12.7 (12.0-16.0) g/dL Hct 37.0 (36.0-46.0) % MCV 96.4 (80.0-98.0) fL MCH 33.1 H (27.0-32.0) pg MCHC 34.3 (31.0-37.0) g/dL RDW Std Deviation 46.5 (28.0-62.0) fl RDW Coeff of Magdiel 13 (11.0-15.0) % Plt Count 248 (150-400) K/uL MPV 9.10 (7.40-12.00) fL Neut % (Auto) 93.5 H (48.0-80.0) % Lymph % (Auto) 4.5 L (16.0-40.0) % Leon % (Auto) 1.9 (0.0-15.0) % Eos % (Auto) 0.0 (0.0-7.0) % Baso % (Auto) 0.1 (0.0-1.5) % Neut # (Auto) 15.4 H (1.4-5.7) K/uL Lymph # (Auto) 0.7 (0.6-2.4) K/uL Leon # (Auto) 0.3 (0.0-0.8) K/uL Eos # (Auto) 0.0 (0.0-0.7) K/uL Baso # (Auto) 0.0 (0.0-0.1) K/uL Nucleated RBC % 0.0 /100WBC Nucleated RBCs # 0 K/uL Sodium 134 L (136-145) mmol/L Potassium 4.5 (3.5-5.1) mmol/L Chloride 97 L (98-107) mmol/L Carbon Dioxide 9.3 L (21.0-32.0) mmol/L BUN 16 (7.0-18.0) mg/dL Creatinine 0.8 (0.6-1.0) mg/dL Est Cr Clr Drug Dosing 76.55 mL/min Estimated GFR (MDRD) > 60.0 ml/min Glucose 122 H (74-106) mg/dL Calcium 8.0 L (8.5-10.1) mg/dL Phosphorus (2.6-4.7) mg/dL Magnesium (1.8-2.4) mg/dL Total Bilirubin 1.0 (0.2-1.0) mg/dL AST 73 H (15-37) IU/L ALT 74 H (14-63) IU/L Alkaline Phosphatase 107 (46-116) U/L Total Protein 8.0 (6.4-8.2) g/dL Albumin 3.9 (3.4-5.0) g/dL Globulin 4.1 H (2.6-4.0) g/dL Albumin/Globulin Ratio 1.0 (0.9-1.6) Lipase (73-393) U/L HCG, Qual NEGATIVE (NEG) Urine Color Urine Appearance Urine pH (5.0-8.0) Ur Specific [place] (1.001-1.035) Urine Protein (NEGATIVE) mg/dL Urine Glucose (UA) (NEGATIVE) mg/dL Urine Ketones (NEGATIVE) mg/dL Urine Occult Blood (NEGATIVE) Urine Nitrite (NEGATIVE) Urine Bilirubin (NEGATIVE) Urine Urobilinogen (<2.0) EU/dL Ur Leukocyte Esterase (NEGATIVE) Urine RBC (0-2/HPF) Urine WBC (0-5/HPF) Ur Epithelial Cells (NONE-FEW) Urine Bacteria (NEGATIVE) Urine HCG, Qual (NEGATIVE) Urine Opiates Screen (NEGATIVE) Ur Oxycodone Screen (NEGATIVE) Urine Methadone Screen (NEGATIVE) Ur Barbiturates Screen (NEGATIVE) Ur Phencyclidine Scrn (NEGATIVE) Ur Amphetamine Screen (NEGATIVE) U Methamphetamines Scrn (NEGATIVE) U Benzodiazepines Scrn (NEGATIVE) U Cocaine Metab Screen (NEGATIVE) U Marijuana (THC) Screen (NEGATIVE) Ethyl Alcohol < 3.0 mg/dL SARS-CoV-2 RNA ([place]) (NEGATIVE) 02/25/21 02/25/21 02/25/21 Range/Units 16:40 16:40 17:10 WBC (4.0-11.0) K/uL RBC (4.30-5.90) M/uL Hgb (12.0-16.0) g/dL Hct (36.0-46.0) % MCV (80.0-98.0) fL MCH (27.0-32.0) pg MCHC (31.0-37.0) g/dL RDW Std Deviation (28.0-62.0) fl RDW Coeff of Magdiel (11.0-15.0) % Plt Count (150-400) K/uL MPV (7.40-12.00) fL Neut % (Auto) (48.0-80.0) % Lymph % (Auto) (16.0-40.0) % Leon % (Auto) (0.0-15.0) % Eos % (Auto) (0.0-7.0) % Baso % (Auto) (0.0-1.5) % Neut # (Auto) (1.4-5.7) K/uL Lymph # (Auto) (0.6-2.4) K/uL Leon # (Auto) (0.0-0.8) K/uL Eos # (Auto) (0.0-0.7) K/uL Baso # (Auto) (0.0-0.1) K/uL Nucleated RBC % /100WBC Nucleated RBCs # K/uL Sodium (136-145) mmol/L Potassium (3.5-5.1) mmol/L Chloride (98-107) mmol/L Carbon Dioxide (21.0-32.0) mmol/L BUN (7.0-18.0) mg/dL Creatinine (0.6-1.0) mg/dL Est Cr Clr Drug Dosing mL/min Estimated GFR (MDRD) ml/min Glucose (74-106) mg/dL Calcium (8.5-10.1) mg/dL Phosphorus (2.6-4.7) mg/dL Magnesium 1.7 L (1.8-2.4) mg/dL Total Bilirubin (0.2-1.0) mg/dL AST (15-37) IU/L ALT (14-63) IU/L Alkaline Phosphatase (46-116) U/L Total Protein (6.4-8.2) g/dL Albumin (3.4-5.0) g/dL Globulin (2.6-4.0) g/dL Albumin/Globulin Ratio (0.9-1.6) Lipase 137 (73-393) U/L HCG, Qual (NEG) Urine Color Urine Appearance Urine pH (5.0-8.0) Ur Specific [place] (1.001-1.035) Urine Protein (NEGATIVE) mg/dL Urine Glucose (UA) (NEGATIVE) mg/dL Urine Ketones (NEGATIVE) mg/dL Urine Occult Blood (NEGATIVE) Urine Nitrite (NEGATIVE) Urine Bilirubin (NEGATIVE) Urine Urobilinogen (<2.0) EU/dL Ur Leukocyte Esterase (NEGATIVE) Urine RBC (0-2/HPF) Urine WBC (0-5/HPF) Ur Epithelial Cells (NONE-FEW) Urine Bacteria (NEGATIVE) Urine HCG, Qual (NEGATIVE) Urine Opiates Screen (NEGATIVE) Ur Oxycodone Screen (NEGATIVE) Urine Methadone Screen (NEGATIVE) Ur Barbiturates Screen (NEGATIVE) Ur Phencyclidine Scrn (NEGATIVE) Ur Amphetamine Screen (NEGATIVE) U Methamphetamines Scrn (NEGATIVE) U Benzodiazepines Scrn (NEGATIVE) U Cocaine Metab Screen (NEGATIVE) U Marijuana (THC) Screen (NEGATIVE) Ethyl Alcohol mg/dL SARS-CoV-2 RNA ([place]) NEGATIVE (NEGATIVE) 02/25/21 02/25/21 02/25/21 Range/Units 17:30 17:30 17:30 WBC (4.0-11.0) K/uL RBC (4.30-5.90) M/uL Hgb (12.0-16.0) g/dL Hct (36.0-46.0) % MCV (80.0-98.0) fL MCH (27.0-32.0) pg MCHC (31.0-37.0) g/dL RDW Std Deviation (28.0-62.0) fl RDW Coeff of Magdiel (11.0-15.0) % Plt Count (150-400) K/uL MPV (7.40-12.00) fL Neut % (Auto) (48.0-80.0) % Lymph % (Auto) (16.0-40.0) % Leon % (Auto) (0.0-15.0) % Eos % (Auto) (0.0-7.0) % Baso % (Auto) (0.0-1.5) % Neut # (Auto) (1.4-5.7) K/uL Lymph # (Auto) (0.6-2.4) K/uL Leon # (Auto) (0.0-0.8) K/uL Eos # (Auto) (0.0-0.7) K/uL Baso # (Auto) (0.0-0.1) K/uL Nucleated RBC % /100WBC Nucleated RBCs # K/uL Sodium (136-145) mmol/L Potassium (3.5-5.1) mmol/L Chloride (98-107) mmol/L Carbon Dioxide (21.0-32.0) mmol/L BUN (7.0-18.0) mg/dL Creatinine (0.6-1.0) mg/dL Est Cr Clr Drug Dosing mL/min Estimated GFR (MDRD) ml/min Glucose (74-106) mg/dL Calcium (8.5-10.1) mg/dL Phosphorus (2.6-4.7) mg/dL Magnesium (1.8-2.4) mg/dL Total Bilirubin (0.2-1.0) mg/dL AST (15-37) IU/L ALT (14-63) IU/L Alkaline Phosphatase (46-116) U/L Total Protein (6.4-8.2) g/dL Albumin (3.4-5.0) g/dL Globulin (2.6-4.0) g/dL Albumin/Globulin Ratio (0.9-1.6) Lipase (73-393) U/L HCG, Qual (NEG) Urine Color YELLOW Urine Appearance HAZY Urine pH 6.0 (5.0-8.0) Ur Specific [place] >= 1.030 (1.001-1.035) Urine Protein 30 H (NEGATIVE) mg/dL Urine Glucose (UA) NEGATIVE (NEGATIVE) mg/dL Urine Ketones >=80 (NEGATIVE) mg/dL Urine Occult Blood LARGE H (NEGATIVE) Urine Nitrite NEGATIVE (NEGATIVE) Urine Bilirubin NEGATIVE (NEGATIVE) Urine Urobilinogen 0.2 (<2.0) EU/dL Ur Leukocyte Esterase TRACE H (NEGATIVE) Urine RBC 0-3 (0-2/HPF) Urine WBC 0-1 (0-5/HPF) Ur Epithelial Cells FEW (NONE-FEW) Urine Bacteria FEW (NEGATIVE) Urine HCG, Qual NEGATIVE (NEGATIVE) Urine Opiates Screen NEGATIVE (NEGATIVE) Ur Oxycodone Screen NEGATIVE (NEGATIVE) Urine Methadone Screen NEGATIVE (NEGATIVE) Ur Barbiturates Screen NEGATIVE (NEGATIVE) Ur Phencyclidine Scrn NEGATIVE (NEGATIVE) Ur Amphetamine Screen NEGATIVE (NEGATIVE) U Methamphetamines Scrn NEGATIVE (NEGATIVE) U Benzodiazepines Scrn NEGATIVE (NEGATIVE) U Cocaine Metab Screen NEGATIVE (NEGATIVE) U Marijuana (THC) Screen NEGATIVE (NEGATIVE) Ethyl Alcohol mg/dL SARS-CoV-2 RNA (JOSELITO) (NEGATIVE) 02/26/21 02/26/21 Range/Units 06:33 06:33 WBC 7.93 (4.0-11.0) K/uL RBC 3.62 L (4.30-5.90) M/uL Hgb 12.1 (12.0-16.0) g/dL Hct 34.5 L (36.0-46.0) % MCV 95.3 (80.0-98.0) fL MCH 33.4 H (27.0-32.0) pg MCHC 35.1 (31.0-37.0) g/dL RDW Std Deviation 46.1 (28.0-62.0) fl RDW Coeff of Magdiel 13 (11.0-15.0) % Plt Count 201 (150-400) K/uL MPV 9.20 (7.40-12.00) fL Neut % (Auto) 68.1 (48.0-80.0) % Lymph % (Auto) 25.9 (16.0-40.0) % Leon % (Auto) 4.8 (0.0-15.0) % Eos % (Auto) 0.9 (0.0-7.0) % Baso % (Auto) 0.3 (0.0-1.5) % Neut # (Auto) 5.4 (1.4-5.7) K/uL Lymph # (Auto) 2.1 (0.6-2.4) K/uL Leon # (Auto) 0.4 (0.0-0.8) K/uL Eos # (Auto) 0.1 (0.0-0.7) K/uL Baso # (Auto) 0.0 (0.0-0.1) K/uL Nucleated RBC % 0.0 /100WBC Nucleated RBCs # 0 K/uL Sodium 135 L (136-145) mmol/L Potassium 3.8 (3.5-5.1) mmol/L Chloride 102 (98-107) mmol/L Carbon Dioxide 21.0 (21.0-32.0) mmol/L BUN 12 (7.0-18.0) mg/dL Creatinine 0.9 (0.6-1.0) mg/dL Est Cr Clr Drug Dosing 68.05 mL/min Estimated GFR (MDRD) > 60.0 ml/min Glucose 78 (74-106) mg/dL Calcium 7.4 L (8.5-10.1) mg/dL Phosphorus 1.3 L (2.6-4.7) mg/dL Magnesium 2.0 (1.8-2.4) mg/dL Total Bilirubin 0.7 (0.2-1.0) mg/dL AST 71 H (15-37) IU/L ALT 65 H (14-63) IU/L Alkaline Phosphatase 91 (46-116) U/L Total Protein 7.0 (6.4-8.2) g/dL Albumin 3.5 (3.4-5.0) g/dL Globulin 3.5 (2.6-4.0) g/dL Albumin/Globulin Ratio 1.0 (0.9-1.6) Lipase (73-393) U/L HCG, Qual (NEG) Urine Color Urine Appearance Urine pH (5.0-8.0) Ur Specific [place] (1.001-1.035) Urine Protein (NEGATIVE) mg/dL Urine Glucose (UA) (NEGATIVE) mg/dL Urine Ketones (NEGATIVE) mg/dL Urine Occult Blood (NEGATIVE) Urine Nitrite (NEGATIVE) Urine Bilirubin (NEGATIVE) Urine Urobilinogen (<2.0) EU/dL Ur Leukocyte Esterase (NEGATIVE) Urine RBC (0-2/HPF) Urine WBC (0-5/HPF) Ur Epithelial Cells (NONE-FEW) Urine Bacteria (NEGATIVE) Urine HCG, Qual (NEGATIVE) Urine Opiates Screen (NEGATIVE) Ur Oxycodone Screen (NEGATIVE) Urine Methadone Screen (NEGATIVE) Ur Barbiturates Screen (NEGATIVE) Ur Phencyclidine Scrn (NEGATIVE) Ur Amphetamine Screen (NEGATIVE) U Methamphetamines Scrn (NEGATIVE) U Benzodiazepines Scrn (NEGATIVE) U Cocaine Metab Screen (NEGATIVE) U Marijuana (THC) Screen (NEGATIVE) Ethyl Alcohol mg/dL SARS-CoV-2 RNA (JOSELIT[place]) (NEGATIVE) Result Diagrams: 02/26/21 06:33 02/26/21 06:33 Sepsis Event Note - Evaluation Sepsis Screening Result: No Definite Risk - Focused Exam Vital Signs: Vital Signs Temp Pulse Resp BP Pulse Ox 02/26/21 07:05 98.4 F 16 121/72 96 02/26/21 04:00 97.5 F 85 16 149/82 H 95 02/26/21 00:00 97.5 F 88 16 142/83 H 97 - Problem List & Annotations (1) Alcohol withdrawal SNOMED Code(s): 721543579 Code(s): F10.239 - ALCOHOL DEPENDENCE WITH WITHDRAWAL, UNSPECIFIED Status: Acute Current Visit: Yes Qualifiers: Complication of substance-induced condition: uncomplicated Qualified Code(s): F10.230 - Alcohol dependence with withdrawal, uncomplicated (2) Hypophosphatemia SNOMED Code(s): 1802944 Code(s): E83.39 - OTHER DISORDERS OF PHOSPHORUS METABOLISM Status: Acute Current Visit: Yes (3) Nausea and vomiting SNOMED Code(s): 66709680 Code(s): R11.2 - NAUSEA WITH VOMITING, UNSPECIFIED Status: Acute Current Visit: Yes Qualifiers: Vomiting Intractability: non-intractable (4) Alcohol abuse SNOMED Code(s): 42113831 Code(s): F10.10 - ALCOHOL ABUSE, UNCOMPLICATED Status: Chronic Current Visit: Yes (5) Anxiety SNOMED Code(s): 22043155 Code(s): F41.9 - ANXIETY DISORDER, UNSPECIFIED Status: Chronic Current Visit: Yes - Problem List Review Problem List Initiated/Reviewed/Updated: Yes - My Orders Last 24 Hours: My Active Orders 02/26/21 08:30 Potassium Phosphates 20 mmole Sodium Chloride 0.9% [Normal Saline] 500 ml IV Q3H - Plan Plan:: Patient is a 41-year-old female admitted for alcohol withdrawal 1. Alcohol withdrawal -Librium seemed to sedate patient too much. Will start Valium 5 mg twice daily at this time -Continue IV fluids for hydration -Continue IV Ativan as needed for alcohol withdrawal symptoms based on CIWA score -Continue thiamine and folic acid -Fall and seizure precautions -Monitor and replete electrolytes as needed 2. UTI -continue Rocephin until cultures are back 3. Anxiety -Continue Lexapro VTE prophylaxis: SCDs and ambulation CODE STATUS: Full code Dispo 2 days
[2021-02-26] MEDS: Diazepam 5 MG Tab PO SCH ×2 (10:34→20:37)
[2021-02-26] MEDS ORDERED: Calcium Carbonate 500 MG Tab.Chew PO PRN ×2 (16:06→17:09)
[2021-02-26] MEDS ORDERED: Pantoprazole 40 MG in Sodium Chloride 0.9% 10 ML IV ONE (17:00)
[2021-02-26] MEDS: Nicotine 14 MG/24 Hr Patch TRDERM SCH (18:17)
[2021-02-26] MEDS: Enoxaparin 40 MG/0.4 ML Syringe SUBCUT SCH (19:40)
[2021-02-26] MEDS: Sodium Chloride 0.9% 2.5 ML Syringe FLUSH PRN (19:41)
[2021-02-26] MEDS: Acetaminophen 325 MG Tab PO PRN (20:36)
[2021-02-26] MEDS: Thiamine 100 MG Tab PO SCH (20:37)
[2021-02-26] MEDS ORDERED: cefTRIAXone 1 GM in Premix Bag 1 BAG IV SCH (21:00)
[2021-02-27] MEDS: Lactated Ringers 1,000 ML IV SCH (05:28)
[2021-02-27] MEDS: Acetaminophen 325 MG Tab PO PRN (05:39)
[2021-02-27 06:12] LABS: BLOOD UREA NITROGEN,BUN 4 mg/dL (7.0-18.0); CHLORIDE,CL 102 mmol/L (98-107); GLUCOSE RANDOM 93 mg/dL (74-106); POTASSIUM,K 2.9 mmol/L (3.5-5.1); SODIUM,NA 141 mmol/L (136-145)
[2021-02-27] MEDS ORDERED: Potassium Chloride 20 MEQ Tab.ER PO ONE ×2 (08:08→12:30)
[2021-02-27] MEDS ORDERED: Potassium Phosphates 30 MMOLE in Sodium Chloride 0.9% 500 ML IV ONE (08:08)
[2021-02-27] MEDS ORDERED: Magnesium Sulfate/Water 2 GM/50 ML BAG IV ONE (08:08)
[2021-02-27] MEDS: Nicotine 14 MG/24 Hr Patch TRDERM SCH (09:25)
[2021-02-27] MEDS: Folic Acid 1 MG Tab PO SCH (09:26)
[2021-02-27] MEDS: Diazepam 5 MG Tab PO SCH (09:26)
[2021-02-27] MEDS: Sodium Chloride 0.9% 10 ML Syringe FLUSH PRN (09:27)
[2021-02-27] MEDS: LORazepam 2 MG/ML SDV IVPUSH PRN (10:52)
--- NOTE | 2021-02-27 11:16 | PCM.DCSUM1 ---
Discharge Summary - Hospital Course Brief History: Patient is a 41-year-old female with past medical history of alcohol abuse, anxiety, depression who comes into the ER by EMS with complaints of feeling unwell and having intractable nausea all morning. Patient states that she has been drinking for last 2 weeks and her last drink was yesterday evening when she had some vodka. She states that she has been struggling with alcohol abuse for a while. She had been sober for few years after she went to rehab 3 years ago but then last year she went through a lot of stress due to losing close family members and hence started drinking again. Patient states that she had stopped drinking for last 3 days but was feeling very miserable so yesterday she had a couple of drinks. Today she started having intractable nausea and vomiting and started feeling very sick so she came to the hospital. Patient feels like she is going through withdrawal symptoms and needs help to go through it.. Patient denies any fever, chills, headache, change in vision, syncope or near syncope. Denies any chest pain, back pain, shortness of breath or cough. Denies any diarrhea, constipation or dysuria. Has not noted any blood in urine or stool. Patient last menstrual cycle ended two days ago. The patient's boyfriend had a vasectomy and she states there is no way she could be . The patient is hemodynamically stable with a mildly elevated blood pressure of 169/77 and heart rate of 107. She is afebrile at 97.9, patient CIWA score was 21 in the ER so she received 2 doses of Ativan and upon my request she also received 10 mg of Librium. Patient was admitted for further management. - Discharge Data Discharge Date: 02/27/21 Discharge Disposition: Home, Self-Care 01 Condition: Stable - Referral to Home Health Primary Care Physician: PCP None - Discharge Diagnosis/Problem(s) (1) Alcohol withdrawal SNOMED Code(s): 404414085 ICD Code: F10.239 - ALCOHOL DEPENDENCE WITH WITHDRAWAL, UNSPECIFIED Status: Acute Qualifiers: Complication of substance-induced condition: uncomplicated Qualified Code(s): F10.230 - Alcohol dependence with withdrawal, uncomplicated (2) Hypophosphatemia SNOMED Code(s): 3233264 ICD Code: E83.39 - OTHER DISORDERS OF PHOSPHORUS METABOLISM Status: Acute (3) Nausea and vomiting SNOMED Code(s): 79146687 ICD Code: R11.2 - NAUSEA WITH VOMITING, UNSPECIFIED Status: Acute Qualifiers: Vomiting Intractability: non-intractable (4) Alcohol abuse SNOMED Code(s): 23479469 ICD Code: F10.10 - ALCOHOL ABUSE, UNCOMPLICATED Status: Chronic (5) Anxiety SNOMED Code(s): 53300880 ICD Code: F41.9 - ANXIETY DISORDER, UNSPECIFIED Status: Chronic - Patient Summary/Data Hospital Course: Admitting Diagnoses: Alcohol withdrawal Nausea and vomiting Discharge Diagnoses Alcohol withdrawal Nausea and vomiting UTI Lennox was admitted and treated with CL diet, IV fluids and Ativan along with Valium for acute alcohol withdrawal. SHe was also noted tohave UTI and electrolyte abnormalities with hypokalemia and hypophosphatemia. These were replaced. DIet was advanced yesterday and she is now tolerating soft diet well. This mornig Potassium 2.9, this was repleted with IV and PO dosing and repeat increased to 3.6. She was continuing to detox from alcohol but had improved. Hospitalist team recommended patient to stay but she declined this. She was giv en 2.5 mg Valium before leaving and instructed no driving. She was prescribed 5 mg Valium 2 tabs for tomorr and Tuesday, daily dosing to help with withdrawal. She was given resources for outpatient rehab as she was refusing inpatient rehabilitation. She will have follow up with PCP in 1 week. She was also prescribed Keflex for UTI for 3 more days. She was explicitly told to not drink with Valium and she verbalized she will not be drinking. - Discharge Plan *PRESCRIPTION DRUG MONITORING PROGRAM REVIEWED*: No *COPY OF PRESCRIPTION DRUG MONITORING REPORT IN PATIENT ANDRESSA: No Prescriptions/Med Rec: cephALEXin [Keflex] 500 mg PO BID #6 cap diazePAM [Valium.] 5 mg PO DAILY #2 tablet Home Medications: Home Meds Escitalopram [Lexapro] 20 mg PO BEDTIME 02/25/21 [History] cephALEXin [Keflex] 500 mg PO BID #6 cap 02/27/21 [Rx] diazePAM [Valium.] 5 mg PO DAILY #2 tablet 02/27/21 [Rx] Patient Handouts: Alcohol Use Disorder, Cephalexin Tablets or Capsules, Diazepam tablets, Alcohol Withdrawal Syndrome, [id number] - Discharge Summary/Plan Comment DC Time >30 min.: No - Patient Data Vitals - Most Recent: Last Vital Signs Temp 97.5 F 02/27/21 08:00 Pulse 75 02/27/21 08:00 Resp 16 02/27/21 08:00 BP 153/95 H 02/27/21 08:00 Pulse Ox 98 02/27/21 08:00 Weight - Most Recent: 57.062 kg I&O - Last 24 hours: Intake & Output 02/26/21 02/27/21 02/27/21 22:59 06:59 14:59 Intake Total 960 1000 Output Total 850 900 Balance 110 100 Lab Results - Last 24 hrs: Laboratory Results - last 24 hr 02/27/21 02/27/21 Range/Units 05:18 05:18 WBC 4.58 (4.0-11.0) K/uL RBC 3.86 L (4.30-5.90) M/uL Hgb 12.7 (12.0-16.0) g/dL Hct 36.5 (36.0-46.0) % MCV 94.6 (80.0-98.0) fL MCH 32.9 H (27.0-32.0) pg MCHC 34.8 (31.0-37.0) g/dL RDW Std Deviation 46.1 (28.0-62.0) fl RDW Coeff of Magdiel 13 (11.0-15.0) % Plt Count 167 (150-400) K/uL MPV 9.30 (7.40-12.00) fL Neut % (Auto) 50.3 (48.0-80.0) % Lymph % (Auto) 42.6 H (16.0-40.0) % Hudson % (Auto) 5.2 (0.0-15.0) % Eos % (Auto) 1.7 (0.0-7.0) % Baso % (Auto) 0.2 (0.0-1.5) % Neut # (Auto) 2.3 (1.4-5.7) K/uL Lymph # (Auto) 2.0 (0.6-2.4) K/uL Hudson # (Auto) 0.2 (0.0-0.8) K/uL Eos # (Auto) 0.1 (0.0-0.7) K/uL Baso # (Auto) 0.0 (0.0-0.1) K/uL Nucleated RBC % 0.0 /100WBC Nucleated RBCs # 0 K/uL Sodium 141 (136-145) mmol/L Potassium 2.9 L (3.5-5.1) mmol/L Chloride 102 (98-107) mmol/L Carbon Dioxide 27.0 (21.0-32.0) mmol/L BUN 4 L (7.0-18.0) mg/dL Creatinine 0.6 (0.6-1.0) mg/dL Est Cr Clr Drug Dosing 102.07 mL/min Estimated GFR (MDRD) > 60.0 ml/min Glucose 93 (74-106) mg/dL Calcium 8.2 L (8.5-10.1) mg/dL Phosphorus 2.2 L (2.6-4.7) mg/dL Magnesium 1.6 L (1.8-2.4) mg/dL Total Bilirubin 0.6 (0.2-1.0) mg/dL AST 57 H (15-37) IU/L ALT 62 (14-63) IU/L Alkaline Phosphatase 85 (46-116) U/L Total Protein 7.2 (6.4-8.2) g/dL Albumin 3.4 (3.4-5.0) g/dL Globulin 3.8 (2.6-4.0) g/dL Albumin/Globulin Ratio 0.9 (0.9-1.6) GISELE Results - Last 24 hrs: Microbiology 02/25/21 17:30 Urine Culture - Final Urine, Clean Catch MIXED MARTHA 10,000-100,000 CFU/ML Med Orders - Current: Current Medications Acetaminophen (Acetaminophen 325 Mg Tab) 650 mg PO Q4H PRN PRN Reason: Pain (Mild 1-3)/fever Last Admin: 02/27/21 05:39 Dose: 650 mg Documented by: Albuterol/Ipratropium (Albuterol/Ipratropium 3.0-0.5 Mg/3 Ml Neb Soln) 3 ml NEB Q4HRRT PRN PRN Reason: Shortness Of Breath/wheezing Calcium Carbonate/Glycine (Calcium Carbonate 500 Mg Tab.Chew) 1,000 mg PO Q2HR PRN PRN Reason: Indigestion Last Admin: 02/27/21 05:39 Dose: 1,000 mg Documented by: Diazepam (Diazepam 5 Mg Tab) 5 mg PO BID [facility] Last Admin: 02/27/21 09:26 Dose: 5 mg Documented by: Enoxaparin Sodium (Enoxaparin 40 Mg/0.4 Ml Syringe) 40 mg SUBCUT Q24H [facility] Last Admin: 02/26/21 19:40 Dose: 40 mg Documented by: Folic Acid (Folic Acid 1 Mg Tab) 1 mg PO DAILY [facility] Last Admin: 02/27/21 09:26 Dose: 1 mg Documented by: Lactated Ringer's (Ringers, Lactated) 1,000 mls @ 125 mls/hr IV ASDIRECTED [facility] Last Admin: 02/27/21 05:28 Dose: 125 mls/hr Documented by: Ceftriaxone Sodium/Dextrose 1 (gm/ Premix) 50 mls @ 200 mls/hr IV Q24H [facility] Last Admin: 02/26/21 20:37 Dose: 200 mls/hr Documented by: Potassium Phosphate 30 mmole/ (Sodium Chloride) 510 mls @ 67.5 mls/hr IV ONETIME ONE Stop: 02/27/21 15:41 Last Admin: 02/27/21 10:26 Dose: 67.5 mls/hr Documented by: Lorazepam (Lorazepam 2 Mg/Ml Sdv) 0 mg IVPUSH Q4H PRN; Protocol PRN Reason: Withdrawal Symptoms Last Admin: 02/27/21 10:52 Dose: 1 mg Documented by: Nicotine (Nicotine 14 Mg/24 Hr Patch) 14 mg TRDERM DAILY [facility] Last Admin: 02/27/21 09:25 Dose: 14 mg Documented by: Ondansetron HCl (Ondansetron 4 Mg/2 Ml Sdv) 4 mg IVPUSH Q4H PRN PRN Reason: Nausea/Vomiting Potassium Chloride (Potassium Chloride 20 Meq Tab.Er) 40 meq PO ONETIME ONE Stop: 02/27/21 12:31 Sodium Chloride (Sodium Chloride 0.9% 10 Ml Syringe) 10 ml FLUSH ASDIRECTED PRN PRN Reason: Keep Vein Open Last Admin: 02/27/21 09:27 Dose: 10 ml Documented by: Sodium Chloride (Sodium Chloride 0.9% 2.5 Ml Syringe) 2.5 ml FLUSH ASDIRECTED PRN PRN Reason: Keep Vein Open Last Admin: 02/26/21 19:41 Dose: 2.5 ml Documented by: Thiamine HCl (Thiamine 100 Mg Tab) 100 mg PO BEDTIME [facility] Last Admin: 02/26/21 20:37 Dose: 100 mg Documented by: Discontinued Medications Calcium Carbonate/Glycine (Calcium Carbonate 500 Mg Tab.Chew) 1,000 mg PO Q2HR PRN PRN Reason: Indigestion Chlordiazepoxide HCl (Chlordiazepoxide 10 Mg Cap) 10 mg PO ONETIME ONE Stop: 02/25/21 18:12 Last Admin: 02/25/21 19:18 Dose: 10 mg Documented by: Sodium Chloride (Normal Saline) 1,000 mls @ 999 mls/hr IV .BOLUS ONE Stop: 02/25/21 17:41 Last Admin: 02/25/21 16:51 Dose: 999 mls/hr Documented by: Ceftriaxone Sodium/Dextrose (Rocephin In Dextrose,Iso-Osm 1 Gm/50 Ml) 50 mls @ 200 mls/hr IV Q24H [facility] Last Admin: 02/25/21 21:18 Dose: 200 mls/hr Documented by: Potassium Phosphate 20 mmole/ (Sodium Chloride) 506.6667 mls @ 168.889 mls/hr IV Q3H [facility] Stop: 02/26/21 14:29 Last Admin: 02/26/21 12:16 Dose: 168.889 mls/hr Documented by: Pantoprazole Sodium 40 mg/ (Sodium Chloride) 10 mls @ 300 mls/hr IV NOW ONE Stop: 02/26/21 17:01 Last Admin: 02/26/21 17:04 Dose: 300 mls/hr Documented by: Magnesium Sulfate (Magnesium Sulfate In Water 2 Gm/50 Ml) 2 gm in 50 mls @ 50 mls/hr IV ONETIME ONE Stop: 02/27/21 09:07 Last Admin: 02/27/21 10:23 Dose: 50 mls/hr Documented by: Lorazepam (Lorazepam 2 Mg/Ml Sdv) 1 mg IVPUSH ONETIME ONE Stop: 02/25/21 16:40 Last Admin: 02/25/21 16:51 Dose: 1 mg Documented by: Lorazepam (Lorazepam 2 Mg/Ml Sdv) 1 mg IVPUSH ONETIME ONE Stop: 02/25/21 18:01 Last Admin: 02/25/21 18:13 Dose: 1 mg Documented by: Magnesium Oxide (Magnesium Oxide 400 Mg Tab) 800 mg PO ONETIME ONE Stop: 02/25/21 20:38 Last Admin: 02/25/21 21:15 Dose: 800 mg Documented by: Potassium Chloride (Potassium Chloride 20 Meq Tab.Er) 40 meq PO ONETIME ONE Stop: 02/27/21 08:09 Last Admin: 02/27/21 09:26 Dose: 40 meq Documented by:
[2021-02-27 12:47] VITALS: BP 154/88; PULSE 80
[2021-02-27] MEDS ORDERED: Escitalopram 10 MG Tab PO SCH (13:00)
[2021-02-27] MEDS ORDERED: Diazepam 5 MG Tab PO ONE (14:51)
[2021-02-27] MEDS ORDERED: Diazepam 2 MG Tab PO ONE (17:00)
== END 2021-02-27 16:30 | disposition home or self-care (01) ==
LOC: MW.ED 16:19 → MW.MS 18:13
PROVIDERS: ADMIT Student in an Organized Health Care Education/Training Program; ATTEND Student in an Organized Health Care Education/Training Program
DX: F10.230 Alcohol dependence with withdrawal, uncomplicated (principal); E83.39 Other disorders of phosphorus metabolism; R11.2 Nausea with vomiting, unspecified; F41.9 Anxiety disorder, unspecified; N39.0 Urinary tract infection, site not specified; E87.6 Hypokalemia; Z20.822 Contact with and (suspected) exposure to COVID-19; Y90.4 Blood alcohol level of 80-99 mg/100 ml
CPT/HCPCS: 36415; 71046; 80053; 80305; 80307; 81001; 81025; 83690; 83735; 84100; 84132; 84703; 85025; 87086; 87635; 93005; 96374; 96376; 99285; A9270; C9113; J0696; J1650; J2060; J3475; J7030; J7040; J7120; 96372; 96375; G0378; U0002